=== PATIENT | male | born 1960 | race Caucasian/White ===

== ENCOUNTER 2017-01-31 12:14 | Inpatient (IN) | payer MEDICAID, MEDICARE ==
[~2017-01-31] VITALS: Ht 177.8 cm; Wt 99.8 kg
[~2017-01-31 12:14] MED LIST: DOXY100C2; PHE100C; TAMS0.4C36
[2017-01-31] MEDS ORDERED: SODIUM CHLORIDE 0.9% 1,000 ML IVB ONE (12:56)
[2017-01-31 13:43] LABS: Basophils # (auto) 0.2 uL; Basophils % (auto) 1.8 % (0.0-2.0); Eosinophils # (auto) 0.5 uL; Eosinophils % (auto) 3.6 % (0.0-7.0); Hematocrit 52.6 % (41.0-53.0); Hemoglobin 18.3 g/dL (13.5-17.5); Lymphocytes # (auto) 3.5 uL; Lymphocytes % (auto) 25.8 % (10.0-50.0); Mean Corpuscular Hemoglobin 32.9 pg (28.0-32.0); Mean Corpuscular Hgb Conc. 34.7 g/dL (32.0-36.0); Mean Corpuscular Volume 94.8 fL (80.0-100.0); Mean Platelet Volume 8.3 fL (6.9-10.8); Monocytes # (auto) 1.2 uL; Monocytes % (auto) 8.6 % (0.0-12.0); Neutrophils # (auto) 8.1 uL; Neutrophils % (auto) 60.2 % (37.0-80.0); Nucleated Red Blood Cells % 0.1 %; Platelet Count (auto) 370 10^3/uL (140-450); Red Cell Distribution Width 13.8 % (11.8-14.3); White Blood Cell 13.4 10^3/uL (4.4-10.8)
[2017-01-31 14:20] LABS: Albumin 3.3 g/dL (3.4-5.0); Alkaline Phosphatase 261 U/L (45-117); Anion Gap 8 (5-15); Aspartate Aminotransferase 30 U/L (15-37); Bilirubin, Total 0.5 mg/dL (0.2-1.0); Blood Urea Nitrogen 9 mg/dL (7-18); Carbon Dioxide 27 mmol/L (21-32); Chloride 104 mmol/L (98-107); GFR African American 223 mL/min; GFR Non-African American 184 mL/min; Glucose 94 mg/dL (74-106); Potassium 3.7 mmol/L (3.5-5.1); Sodium 139 mmol/L (136-145); Total Protein 9.2 g/dL (6.4-8.2)
[2017-01-31] MEDS: SODIUM CHLORIDE 0.9% 1,000 ML IV SCH (15:01)
[2017-01-31] MEDS ORDERED: HYDROcodone-ACET 5/325MG TAB PO PRN (15:15)
[2017-01-31] MEDS ORDERED: LACTULOSE 20Gm/30ML SOLN PO PRN (15:15)
[2017-01-31] MEDS ORDERED: TEMAZEPAM 15 MG CAP PO PRN (15:15)
[2017-01-31] MEDS ORDERED: LORazepam 2MG/ML-1ML VIAL IV PRN (15:15)
[2017-01-31] MEDS ORDERED: ACETAMINOPHEN 500 MG TAB PO PRN (15:15)
[2017-01-31] MEDS ORDERED: NITROGLYCERIN 0.4 MG SL TAB SL PRN (15:15)
[2017-01-31] MEDS ORDERED: PROMETHAZINE HCL 25 MG/ML 1ML IV PRN (15:15)
[2017-01-31] MEDS ORDERED: MORPHINE SULF INJ 2 MG/ML SYRINGE 1ML IV PRN (15:15)
[2017-01-31] MEDS ORDERED: LORazepam 0.5 MG TAB PO PRN (15:15)
[2017-01-31 16:40] LABS: INR 1.07 (0.9-1.15); Partial Thromboplastin Time 32.2 sec (22.64-33.71); Prothrombin Time 11.7 sec (9.37-12.3)
[2017-01-31] MEDS: LABETALOL HCL 5 MG/ML 4ML SYRINGE IV PRN (19:07)
[2017-01-31 20:58] LABS: Urine Bilirubin Negative (Negative); Urine Blood 3+ /uL (Negative); Urine Color Red (Yellow); Urine Glucose Normal (Normal); Urine Ketone TRACE (Negative); Urine Nitrite Negative (Negative); Urine RBC 5503 /hpf (0 - 3); Urine Urobilinogen Normal (Negative); Urine pH 8.5 (5.0-8.0)
[2017-01-31] MEDS: PHENYTOIN SODIUM 50 MG/ML 2ML VIAL IV SCH (22:17)
[2017-01-31] MEDS ORDERED: LEVO25TA6 PO (23:44)
[2017-01-31] MEDS ORDERED: PROP225C9 PO (23:44)
[2017-01-31] MEDS ORDERED: LISI-646 PO (23:44)
[2017-01-31] MEDS ORDERED: FOLI1TAB6 PO (23:44)
[2017-01-31] MEDS ORDERED: DULO20CA PO (23:44)
[2017-01-31] MEDS ORDERED: APIX5TAB OR (23:44)
[2017-01-31] MEDS ORDERED: MULTTAB99 PO (23:57)
[2017-01-31] MEDS ORDERED: ACET-1156 PO (23:57)
[2017-01-31] MEDS ORDERED: PHE100C PO ×2 (23:57)
[2017-01-31] MEDS ORDERED: CLO01T PO (23:57)
[2017-02-01] MEDS: SODIUM CHLORIDE 0.9% 1,000 ML IV SCH ×3 (04:21→21:32)
[2017-02-01 05:00] VITALS: BP 142/74
[2017-02-01] MEDS: PHENYTOIN SODIUM 50 MG/ML 2ML VIAL IV SCH ×3 (05:54→21:24)
[2017-02-01 06:39] LABS: Basophils # (auto) 0.2 uL; Basophils % (auto) 0.9 % (0.0-2.0); Eosinophils # (auto) 0.2 uL; Eosinophils % (auto) 1.1 % (0.0-7.0); Hematocrit 48.1 % (41.0-53.0); Hemoglobin 16.4 g/dL (13.5-17.5); Lymphocytes % (auto) 11.2 % (10.0-50.0); Mean Corpuscular Hemoglobin 32.4 pg (28.0-32.0); Mean Corpuscular Hgb Conc. 34.2 g/dL (32.0-36.0); Mean Corpuscular Volume 94.9 fL (80.0-100.0); Mean Platelet Volume 8.7 fL (6.9-10.8); Monocytes # (auto) 1.3 uL; Monocytes % (auto) 7.4 % (0.0-12.0); Neutrophils # (auto) 14.4 uL; Neutrophils % (auto) 79.4 % (37.0-80.0); Platelet Count (auto) 329 10^3/uL (140-450); Red Cell Distribution Width 13.8 % (11.8-14.3); White Blood Cell 18.1 10^3/uL (4.4-10.8)
[2017-02-01 07:09] LABS: Albumin 2.7 g/dL (3.4-5.0); BUN/Creatinine Ratio 18.4; Bilirubin, Total 0.8 mg/dL (0.2-1.0); Calcium 8.2 mg/dL (8.5-10.1); Potassium 3.4 mmol/L (3.5-5.1); Total Protein 7.5 g/dL (6.4-8.2)
[2017-02-01 09:00] VITALS: BP 119/85
[2017-02-01] MEDS: NICOTINE 21MG/24 HR TOPICAL PATCH TD SCH (09:23)
[2017-02-01] MEDS: MORPHINE SULF INJ 2 MG/ML SYRINGE 1ML IV PRN ×2 (09:23→15:26)
[2017-02-01] MEDS: ENOXAPARIN SOD 40 MG/0.4 ML SYRINGE SC SCH (09:23)
[2017-02-01 13:00] VITALS: BP 159/68
[2017-02-01 17:00] VITALS: BP 159/81
[2017-02-01 21:07] VITALS: BP 165/82
[2017-02-02] VITALS (7 sets, daily range): BP systolic 135–191; BP diastolic 77–113
[2017-02-02] MEDS: LABETALOL HCL 5 MG/ML 4ML SYRINGE IV PRN ×5 (04:22→17:41)
[2017-02-02] MEDS: PHENYTOIN SODIUM 50 MG/ML 2ML VIAL IV SCH ×3 (06:26→21:36)
[2017-02-02] MEDS: ENOXAPARIN SOD 40 MG/0.4 ML SYRINGE SC SCH (09:35)
[2017-02-02] MEDS: NICOTINE 21MG/24 HR TOPICAL PATCH TD SCH (09:37)
[2017-02-02] MEDS: MORPHINE SULF INJ 2 MG/ML SYRINGE 1ML IV PRN ×2 (11:45→17:41)
[2017-02-02] MEDS: SODIUM CHLORIDE 0.9% 1,000 ML IV SCH (20:38)
[2017-02-03 05:00] VITALS: BP 153/106
[2017-02-03] MEDS: PHENYTOIN SODIUM 50 MG/ML 2ML VIAL IV SCH ×3 (05:53→22:10)
[2017-02-03] MEDS: LABETALOL HCL 5 MG/ML 4ML SYRINGE IV PRN ×3 (05:54→17:28)
[2017-02-03 09:00] VITALS: BP 163/84
[2017-02-03] MEDS: SODIUM CHLORIDE 0.9% 1,000 ML IV SCH (09:41)
[2017-02-03] MEDS ORDERED: ceFAZolin 1GM/50ML D5W 50 ML IV ONE (09:45)
[2017-02-03] MEDS: ENOXAPARIN SOD 40 MG/0.4 ML SYRINGE SC SCH (10:00)
[2017-02-03] MEDS: NICOTINE 21MG/24 HR TOPICAL PATCH TD SCH (10:00)
[2017-02-03] MEDS: PIPERACILLIN-TAZOB 3.375GM 100 ML IV SCH ×3 (12:46→22:12)
[2017-02-03 13:00] VITALS: BP 166/97
[2017-02-03 17:45] VITALS: BP 154/100
[2017-02-04] MEDS: SODIUM CHLORIDE 0.9% 1,000 ML IV SCH ×2 (01:17→11:21)
[2017-02-04] MEDS: LABETALOL HCL 5 MG/ML 4ML SYRINGE IV PRN ×3 (04:16→14:49)
[2017-02-04] MEDS: MORPHINE SULF INJ 2 MG/ML SYRINGE 1ML IV PRN (04:17)
[2017-02-04] MEDS: PHENYTOIN SODIUM 50 MG/ML 2ML VIAL IV SCH ×3 (06:04→21:36)
[2017-02-04] MEDS: PIPERACILLIN-TAZOB 3.375GM 100 ML IV SCH ×3 (06:04→17:53)
[2017-02-04 06:47] LABS: Basophils # (auto) 0.2 uL; Basophils % (auto) 1.3 % (0.0-2.0); Eosinophils # (auto) 0.6 uL; Hematocrit 47.4 % (41.0-53.0); Hemoglobin 16.2 g/dL (13.5-17.5); Lymphocytes # (auto) 3.1 uL; Lymphocytes % (auto) 20.7 % (10.0-50.0); Mean Corpuscular Hemoglobin 32.4 pg (28.0-32.0); Mean Corpuscular Hgb Conc. 34.1 g/dL (32.0-36.0); Monocytes # (auto) 1.5 uL; Monocytes % (auto) 9.8 % (0.0-12.0); Neutrophils # (auto) 9.5 uL; Neutrophils % (auto) 64.2 % (37.0-80.0); Nucleated Red Blood Cells % 0.1 %; Platelet Count (auto) 313 10^3/uL (140-450); White Blood Cell 14.8 10^3/uL (4.4-10.8)
[2017-02-04 07:08] LABS: BUN/Creatinine Ratio 13.3; Calcium 8.3 mg/dL (8.5-10.1); Potassium 3.2 mmol/L (3.5-5.1)
[2017-02-04 09:00] VITALS: BP 155/96
[2017-02-04] MEDS: ENOXAPARIN SOD 40 MG/0.4 ML SYRINGE SC SCH (11:14)
[2017-02-04] MEDS: NICOTINE 21MG/24 HR TOPICAL PATCH TD SCH (11:15)
[2017-02-04] MEDS: DOXYCYCLINE HYC 100MG/250ML 250 ML IV SCH ×2 (11:21→21:36)
[2017-02-04 13:00] VITALS: BP 150/92
[2017-02-04 17:00] VITALS: BP 158/90
[2017-02-04 22:00] VITALS: BP 156/83
[2017-02-05] MEDS: PIPERACILLIN-TAZOB 3.375GM 100 ML IV SCH ×5 (00:02→21:54)
[2017-02-05] MEDS: MORPHINE SULF INJ 2 MG/ML SYRINGE 1ML IV PRN ×3 (00:14→21:55)
[2017-02-05] MEDS: SODIUM CHLORIDE 0.9% 1,000 ML IV SCH (02:55)
[2017-02-05] MEDS: LABETALOL HCL 5 MG/ML 4ML SYRINGE IV PRN ×2 (04:43→21:55)
[2017-02-05 05:00] VITALS: BP 147/102
[2017-02-05] MEDS: PHENYTOIN SODIUM 50 MG/ML 2ML VIAL IV SCH ×3 (06:41→21:54)
[2017-02-05 06:51] LABS: Basophils # (auto) 0.2 uL; Basophils % (auto) 1.2 % (0.0-2.0); Eosinophils # (auto) 0.6 uL; Eosinophils % (auto) 3.9 % (0.0-7.0); Hematocrit 48.9 % (41.0-53.0); Hemoglobin 16.5 g/dL (13.5-17.5); Lymphocytes # (auto) 3.3 uL; Lymphocytes % (auto) 22.9 % (10.0-50.0); Mean Corpuscular Hgb Conc. 33.8 g/dL (32.0-36.0); Mean Corpuscular Volume 94.9 fL (80.0-100.0); Mean Platelet Volume 9.1 fL (6.9-10.8); Monocytes # (auto) 1.4 uL; Monocytes % (auto) 9.8 % (0.0-12.0); Neutrophils # (auto) 8.9 uL; Neutrophils % (auto) 62.2 % (37.0-80.0); Nucleated Red Blood Cells % 0.1 %; Platelet Count (auto) 316 10^3/uL (140-450); White Blood Cell 14.4 10^3/uL (4.4-10.8)
[2017-02-05 07:09] LABS: BUN/Creatinine Ratio 10.8; Calcium 8.4 mg/dL (8.5-10.1); Potassium 3.1 mmol/L (3.5-5.1)
[2017-02-05] MEDS ORDERED: LIDOCAINE VISCOUS 2% 15ML UD ONE (08:04)
[2017-02-05] MEDS ORDERED: SODIUM CHLORIDE LOCK 10 ML ONE (08:04)
[2017-02-05] MEDS ORDERED: MIDAZOLAM HCL 5 MG/ML-1ML VIAL ONE (08:04)
[2017-02-05] MEDS ORDERED: diphenhdrAMINE HCL 50 MG/1 ML VL ONE (08:04)
[2017-02-05] MEDS ORDERED: fentaNYL CITRATE 100 MCG/2 ML VL ONE (08:05)
[2017-02-05 09:00] VITALS: BP 186/99
[2017-02-05] MEDS: DOXYCYCLINE HYC 100MG/250ML 250 ML IV SCH (09:30)
[2017-02-05] MEDS: ENOXAPARIN SOD 40 MG/0.4 ML SYRINGE SC SCH (10:00)
[2017-02-05] MEDS: NICOTINE 21MG/24 HR TOPICAL PATCH TD SCH (10:00)
[2017-02-05 13:00] VITALS: BP 158/98
[2017-02-05 17:00] VITALS: BP 167/108
[2017-02-05] MEDS: D5W/SOD CHL 0.45%/KCL 40MEQ 1,000 ML IV SCH (17:36)
[2017-02-05 22:00] VITALS: BP 164/78
[2017-02-06 05:00] VITALS: BP 162/81
[2017-02-06] MEDS: PHENYTOIN SODIUM 50 MG/ML 2ML VIAL IV SCH ×3 (05:14→17:25)
[2017-02-06] MEDS: PIPERACILLIN-TAZOB 3.375GM 100 ML IV SCH ×2 (05:14→18:33)
[2017-02-06] MEDS: D5W/SOD CHL 0.45%/KCL 40MEQ 1,000 ML IV SCH (05:14)
[2017-02-06] MEDS: LABETALOL HCL 5 MG/ML 4ML SYRINGE IV PRN ×2 (05:55→23:55)
[2017-02-06] MEDS ORDERED: POTASSIUM CHL 20MEQ/100ML 100 ML IV ONE ×2 (08:54→10:00)
[2017-02-06 09:00] VITALS: BP 144/77
[2017-02-06] MEDS: ENOXAPARIN SOD 40 MG/0.4 ML SYRINGE SC SCH (11:23)
[2017-02-06] MEDS: NICOTINE 21MG/24 HR TOPICAL PATCH TD SCH (11:23)
[2017-02-06 13:00] VITALS: BP 185/97
[2017-02-06] MEDS ORDERED: LIDOCAINE 1% HCL (LOCAL ANESTH.) INJ 20ML MDV ID ONE (14:45)
[2017-02-06 17:00] VITALS: BP 154/96
[2017-02-06] MEDS: MORPHINE SULF INJ 2 MG/ML SYRINGE 1ML IV PRN ×2 (17:25→19:50)
[2017-02-06] MEDS: POTASSIUM CHLORIDE 40 MEQ in D5W/LACTATED RINGERS 1,000 ML IV SCH (19:42)
[2017-02-06] MEDS: SODIUM CHLOR 0.9% PF (SALINE LOCK) 10ML VIAL IV SCH (21:58)
[2017-02-06 23:41] VITALS: BP 165/114
[2017-02-07] MEDS: POTASSIUM CHLORIDE 40 MEQ in D5W/LACTATED RINGERS 1,000 ML IV SCH ×2 (03:18→13:53)
[2017-02-07 05:05] VITALS: BP 153/100
[2017-02-07] MEDS: PHENYTOIN SODIUM 50 MG/ML 2ML VIAL IV SCH ×3 (06:36→22:04)
[2017-02-07 08:00] VITALS: BP 167/84
[2017-02-07] MEDS ORDERED: PIPERACILLIN-TAZOB 3.375GM 100 ML IV SCH ×2 (08:15→19:13)
[2017-02-07] MEDS: PIPERACILLIN-TAZOB 3.375GM 100 ML IV SCH ×3 (09:27→20:39)
[2017-02-07] MEDS: MORPHINE SULF INJ 2 MG/ML SYRINGE 1ML IV PRN ×2 (09:28→20:38)
[2017-02-07] MEDS: LABETALOL HCL 5 MG/ML 4ML SYRINGE IV PRN ×3 (09:30→20:38)
[2017-02-07] MEDS: SODIUM CHLOR 0.9% PF (SALINE LOCK) 10ML VIAL IV SCH ×2 (10:00→22:04)
[2017-02-07 10:57] VITALS: BP 157/75
[2017-02-07] MEDS: ENOXAPARIN SOD 40 MG/0.4 ML SYRINGE SC SCH (14:21)
[2017-02-07 17:19] VITALS: BP 155/93
[2017-02-07] MEDS: NICOTINE 21MG/24 HR TOPICAL PATCH TD SCH (18:39)
[2017-02-07 22:00] VITALS: BP 160/103
[2017-02-07 22:40] VITALS: BP 166/82
[2017-02-08] MEDS: PIPERACILLIN-TAZOB 3.375GM 100 ML IV SCH ×4 (03:44→20:54)
[2017-02-08 05:00] VITALS: BP 150/83
[2017-02-08] MEDS: PHENYTOIN SODIUM 50 MG/ML 2ML VIAL IV SCH ×3 (06:03→22:05)
[2017-02-08 07:30] VITALS: BP 166/80
[2017-02-08 09:00] VITALS: BP 151/72
[2017-02-08] MEDS: NICOTINE 21MG/24 HR TOPICAL PATCH TD SCH (10:44)
[2017-02-08] MEDS: SODIUM CHLOR 0.9% PF (SALINE LOCK) 10ML VIAL IV SCH ×2 (10:44→22:05)
[2017-02-08] MEDS: ENOXAPARIN SOD 40 MG/0.4 ML SYRINGE SC SCH (10:46)
[2017-02-08] MEDS: POTASSIUM CHLORIDE 40 MEQ in D5W/LACTATED RINGERS 1,000 ML IV SCH ×3 (12:19→23:39)
[2017-02-08 13:00] VITALS: BP 146/87
[2017-02-08 14:10] LABS: INR 2.02 (0.9-1.15); Partial Thromboplastin Time 41.3 sec (22.64-33.71); Prothrombin Time 22.2 sec (9.37-12.3)
[2017-02-08 17:00] VITALS: BP 171/110
[2017-02-08] MEDS: LABETALOL HCL 5 MG/ML 4ML SYRINGE IV PRN ×2 (17:47→20:00)
[2017-02-08 19:08] LABS: INR 2.07 (0.9-1.15); Partial Thromboplastin Time 40.7 sec (22.64-33.71); Prothrombin Time 22.7 sec (9.37-12.3)
[2017-02-08] MEDS: MORPHINE SULF INJ 2 MG/ML SYRINGE 1ML IV PRN (19:59)
[2017-02-08 21:36] VITALS: BP 168/83
[2017-02-09] MEDS: PIPERACILLIN-TAZOB 3.375GM 100 ML IV SCH ×4 (03:17→21:14)
[2017-02-09 05:34] VITALS: BP 165/81
[2017-02-09] MEDS: PHENYTOIN SODIUM 50 MG/ML 2ML VIAL IV SCH ×3 (05:38→22:09)
[2017-02-09] MEDS: POTASSIUM CHLORIDE 40 MEQ in D5W/LACTATED RINGERS 1,000 ML IV SCH ×2 (08:54→21:14)
[2017-02-09 09:06] VITALS: BP 163/111
[2017-02-09] MEDS: SODIUM CHLOR 0.9% PF (SALINE LOCK) 10ML VIAL IV SCH ×2 (10:00→22:09)
[2017-02-09] MEDS: ENOXAPARIN SOD 40 MG/0.4 ML SYRINGE SC SCH (10:47)
[2017-02-09] MEDS: NICOTINE 21MG/24 HR TOPICAL PATCH TD SCH (10:48)
[2017-02-09 13:26] VITALS: BP 175/110
[2017-02-09] MEDS ORDERED: PHYTONADIONE (VIT K)10 MG/ML 1ML VIAL SUBCUT ONE (13:30)
[2017-02-09 14:48] LABS: INR 2.36 (0.9-1.15); Partial Thromboplastin Time 43.6 sec (22.64-33.71)
[2017-02-09 17:17] VITALS: BP 150/114
[2017-02-09 20:46] VITALS: BP 157/115
[2017-02-10] MEDS: PIPERACILLIN-TAZOB 3.375GM 100 ML IV SCH ×4 (02:40→21:30)
[2017-02-10 03:59] VITALS: BP 154/106
[2017-02-10] MEDS: PHENYTOIN SODIUM 50 MG/ML 2ML VIAL IV SCH ×3 (06:04→21:49)
[2017-02-10] MEDS: POTASSIUM CHLORIDE 40 MEQ in D5W/LACTATED RINGERS 1,000 ML IV SCH ×2 (07:00→17:17)
[2017-02-10] MEDS: NICOTINE 21MG/24 HR TOPICAL PATCH TD SCH (08:41)
[2017-02-10 09:00] VITALS: BP 163/93
[2017-02-10] MEDS: MORPHINE SULF INJ 2 MG/ML SYRINGE 1ML IV PRN (09:35)
[2017-02-10] MEDS: SODIUM CHLOR 0.9% PF (SALINE LOCK) 10ML VIAL IV SCH ×2 (10:00→21:49)
[2017-02-10] MEDS ORDERED: POTASSIUM CHLORIDE 20 MEQ, LIDOCAINE 1% (LOCAL ANESTH.) 2 ML in SODIUM CHL 0.9% 100 ML IV ONE (12:00)
[2017-02-10] MEDS: ENOXAPARIN SOD 40 MG/0.4 ML SYRINGE SC SCH (12:02)
[2017-02-10 13:25] VITALS: BP 150/84
[2017-02-10 16:58] VITALS: BP 162/119
[2017-02-10 21:22] VITALS: BP 164/101
[2017-02-10] MEDS: LABETALOL HCL 5 MG/ML 4ML SYRINGE IV PRN (21:50)
[2017-02-10 23:41] VITALS: BP 154/98
[2017-02-11] MEDS: PIPERACILLIN-TAZOB 3.375GM 100 ML IV SCH ×4 (03:00→20:59)
[2017-02-11] MEDS: POTASSIUM CHLORIDE 40 MEQ in D5W/LACTATED RINGERS 1,000 ML IV SCH ×2 (03:15→15:30)
[2017-02-11 04:59] VITALS: BP 161/119
[2017-02-11] MEDS: LABETALOL HCL 5 MG/ML 4ML SYRINGE IV PRN ×2 (05:08→21:39)
[2017-02-11] MEDS: PHENYTOIN SODIUM 50 MG/ML 2ML VIAL IV SCH ×3 (05:46→22:52)
[2017-02-11 06:26] LABS: INR 1.11 (0.9-1.15); Prothrombin Time 12.1 sec (9.37-12.3)
[2017-02-11 06:42] LABS: Albumin 2.4 g/dL (3.4-5.0); BUN/Creatinine Ratio 4.5; Bilirubin, Total 0.6 mg/dL (0.2-1.0); Calcium 8.5 mg/dL (8.5-10.1); Potassium 3.8 mmol/L (3.5-5.1); Total Protein 7.3 g/dL (6.4-8.2)
[2017-02-11 06:46] LABS: Basophils # (auto) 0.2 uL; Basophils % (auto) 1.1 % (0.0-2.0); Eosinophils # (auto) 0.9 uL; Eosinophils % (auto) 6.4 % (0.0-7.0); Hematocrit 48.9 % (41.0-53.0); Hemoglobin 16.3 g/dL (13.5-17.5); Lymphocytes # (auto) 3.4 uL; Lymphocytes % (auto) 23.4 % (10.0-50.0); Mean Corpuscular Hemoglobin 31.8 pg (28.0-32.0); Mean Corpuscular Hgb Conc. 33.4 g/dL (32.0-36.0); Mean Corpuscular Volume 95.3 fL (80.0-100.0); Mean Platelet Volume 9.8 fL (6.9-10.8); Monocytes # (auto) 1.5 uL; Neutrophils # (auto) 8.7 uL; Neutrophils % (auto) 59.1 % (37.0-80.0); Platelet Count (auto) 355 10^3/uL (140-450); Red Cell Distribution Width 14.3 % (11.8-14.3); White Blood Cell 14.7 10^3/uL (4.4-10.8)
[2017-02-11 09:01] VITALS: BP 132/97
[2017-02-11] MEDS: SODIUM CHLOR 0.9% PF (SALINE LOCK) 10ML VIAL IV SCH ×2 (10:00→22:52)
[2017-02-11] MEDS: NICOTINE 21MG/24 HR TOPICAL PATCH TD SCH (10:17)
[2017-02-11] MEDS: ENOXAPARIN SOD 40 MG/0.4 ML SYRINGE SC SCH (10:17)
[2017-02-11 12:53] VITALS: BP 199/100
[2017-02-11 17:17] VITALS: BP 163/105
[2017-02-11 20:00] VITALS: BP 176/89
[2017-02-11 21:33] VITALS: BP 176/89
[2017-02-12] MEDS: PIPERACILLIN-TAZOB 3.375GM 100 ML IV SCH ×4 (02:37→21:26)
[2017-02-12] MEDS: POTASSIUM CHLORIDE 40 MEQ in D5W/LACTATED RINGERS 1,000 ML IV SCH ×3 (03:01→18:39)
[2017-02-12 04:48] VITALS: BP 156/81
[2017-02-12] MEDS: PHENYTOIN SODIUM 50 MG/ML 2ML VIAL IV SCH ×3 (05:57→21:26)
[2017-02-12 06:45] LABS: Basophils # (auto) 0.4 uL; Basophils % (auto) 3.2 % (0.0-2.0); Eosinophils # (auto) 1.1 uL; Hemoglobin 17.1 g/dL (13.5-17.5); Lymphocytes # (auto) 3.6 uL; Lymphocytes % (auto) 30.4 % (10.0-50.0); Mean Corpuscular Hemoglobin 32.5 pg (28.0-32.0); Mean Corpuscular Hgb Conc. 34.1 g/dL (32.0-36.0); Mean Corpuscular Volume 95.2 fL (80.0-100.0); Mean Platelet Volume 9.2 fL (6.9-10.8); Monocytes # (auto) 1.4 uL; Monocytes % (auto) 11.7 % (0.0-12.0); Neutrophils # (auto) 5.4 uL; Neutrophils % (auto) 45.7 % (37.0-80.0); Nucleated Red Blood Cells % 0.1 %; Platelet Count (auto) 342 10^3/uL (140-450); Red Cell Distribution Width 14.4 % (11.8-14.3); White Blood Cell 11.9 10^3/uL (4.4-10.8)
[2017-02-12 06:47] LABS: INR 1.08 (0.9-1.15); Prothrombin Time 11.8 sec (9.37-12.3)
[2017-02-12 07:01] LABS: Albumin 2.4 g/dL (3.4-5.0); BUN/Creatinine Ratio 5.1; Bilirubin, Total 0.7 mg/dL (0.2-1.0); Calcium 8.8 mg/dL (8.5-10.1); Potassium 3.7 mmol/L (3.5-5.1); Total Protein 7.3 g/dL (6.4-8.2)
[2017-02-12 09:00] VITALS: BP 158/88
[2017-02-12] MEDS: SODIUM CHLOR 0.9% PF (SALINE LOCK) 10ML VIAL IV SCH ×2 (11:15→21:26)
[2017-02-12] MEDS: NICOTINE 21MG/24 HR TOPICAL PATCH TD SCH (11:16)
[2017-02-12] MEDS: ENOXAPARIN SOD 40 MG/0.4 ML SYRINGE SC SCH (11:16)
[2017-02-12 13:00] VITALS: BP 118/71
[2017-02-12] MEDS: LABETALOL HCL 5 MG/ML 4ML SYRINGE IV PRN (22:43)
[2017-02-13] MEDS: PIPERACILLIN-TAZOB 3.375GM 100 ML IV SCH ×4 (03:00→20:23)
[2017-02-13] MEDS: POTASSIUM CHLORIDE 40 MEQ in D5W/LACTATED RINGERS 1,000 ML IV SCH ×2 (04:42→15:45)
[2017-02-13 05:30] VITALS: BP 166/98
[2017-02-13] MEDS: PHENYTOIN SODIUM 50 MG/ML 2ML VIAL IV SCH ×3 (06:00→20:23)
[2017-02-13] MEDS: ENOXAPARIN SOD 40 MG/0.4 ML SYRINGE SC SCH (10:00)
[2017-02-13] MEDS: NICOTINE 21MG/24 HR TOPICAL PATCH TD SCH (10:00)
[2017-02-13 13:00] VITALS: BP 154/105
[2017-02-13] MEDS ORDERED: LIDOCAINE 1% HCL (LOCAL ANESTH.) INJ 20ML MDV ID ONE (15:00)
[2017-02-13] MEDS: SODIUM CHLOR 0.9% PF (SALINE LOCK) 10ML VIAL IV SCH ×3 (15:45→20:24)
[2017-02-13 17:00] VITALS: BP 153/101
[2017-02-13 23:45] VITALS: BP 161/104
[2017-02-14] MEDS: POTASSIUM CHLORIDE 40 MEQ in D5W/LACTATED RINGERS 1,000 ML IV SCH ×3 (00:11→20:05)
[2017-02-14] MEDS: PIPERACILLIN-TAZOB 3.375GM 100 ML IV SCH ×4 (03:17→20:17)
[2017-02-14 05:03] VITALS: BP 152/102
[2017-02-14] MEDS: PHENYTOIN SODIUM 50 MG/ML 2ML VIAL IV SCH ×3 (05:23→22:05)
[2017-02-14] MEDS: SODIUM CHLOR 0.9% PF (SALINE LOCK) 10ML VIAL IV SCH ×4 (07:41→20:05)
[2017-02-14] MEDS: NICOTINE 21MG/24 HR TOPICAL PATCH TD SCH (08:46)
[2017-02-14] MEDS: ENOXAPARIN SOD 40 MG/0.4 ML SYRINGE SC SCH (08:46)
[2017-02-14 09:00] VITALS: BP 174/86
[2017-02-14 13:00] VITALS: BP 165/86
[2017-02-14 17:00] VITALS: BP 161/97
[2017-02-14 21:27] VITALS: BP 138/90
[2017-02-15] MEDS: PIPERACILLIN-TAZOB 3.375GM 100 ML IV SCH ×2 (03:25→09:18)
[2017-02-15 04:56] VITALS: BP 150/80
[2017-02-15] MEDS: PHENYTOIN SODIUM 50 MG/ML 2ML VIAL IV SCH ×3 (05:48→21:53)
[2017-02-15] MEDS: POTASSIUM CHLORIDE 40 MEQ in D5W/LACTATED RINGERS 1,000 ML IV SCH ×2 (07:42→18:16)
[2017-02-15] MEDS: ENOXAPARIN SOD 40 MG/0.4 ML SYRINGE SC SCH (09:18)
[2017-02-15] MEDS: NICOTINE 21MG/24 HR TOPICAL PATCH TD SCH (09:18)
[2017-02-15] MEDS: SODIUM CHLOR 0.9% PF (SALINE LOCK) 10ML VIAL IV SCH ×4 (09:19→21:54)
[2017-02-15] MEDS: LABETALOL HCL 5 MG/ML 4ML SYRINGE IV PRN ×2 (09:31→17:42)
[2017-02-15 09:35] VITALS: BP 167/95
[2017-02-15] MEDS ORDERED: MUPIROCIN 2% OINT 22GM TOP ONE (11:00)
[2017-02-15 12:00] LABS: INR 1.08 (0.9-1.15); Partial Thromboplastin Time 33.2 sec (22.64-33.71); Prothrombin Time 11.8 sec (9.37-12.3)
[2017-02-15 12:01] LABS: Basophils # (auto) 0.2 uL; Basophils % (auto) 2.1 % (0.0-2.0); Eosinophils # (auto) 1.1 uL; Eosinophils % (auto) 9.9 % (0.0-7.0); Hematocrit 47.2 % (41.0-53.0); Hemoglobin 15.9 g/dL (13.5-17.5); Lymphocytes # (auto) 3.6 uL; Lymphocytes % (auto) 31.2 % (10.0-50.0); Mean Corpuscular Hemoglobin 32.3 pg (28.0-32.0); Mean Corpuscular Hgb Conc. 33.7 g/dL (32.0-36.0); Mean Corpuscular Volume 95.8 fL (80.0-100.0); Mean Platelet Volume 8.8 fL (6.9-10.8); Monocytes # (auto) 1.3 uL; Monocytes % (auto) 11.5 % (0.0-12.0); Neutrophils # (auto) 5.2 uL; Neutrophils % (auto) 45.3 % (37.0-80.0); Nucleated Red Blood Cells % 0.1 %; Platelet Count (auto) 374 10^3/uL (140-450); Red Cell Distribution Width 14.1 % (11.8-14.3); White Blood Cell 11.5 10^3/uL (4.4-10.8)
[2017-02-15 12:20] LABS: Albumin 2.5 g/dL (3.4-5.0); BUN/Creatinine Ratio 5.1; Bilirubin, Total 0.6 mg/dL (0.2-1.0); Calcium 8.5 mg/dL (8.5-10.1); Potassium 3.4 mmol/L (3.5-5.1)
[2017-02-15 12:54] VITALS: BP 154/82
[2017-02-15 17:28] VITALS: BP 171/111
[2017-02-15] MEDS: MUPIROCIN 2% OINT 22GM EACHNOSTRI SCH (21:53)
[2017-02-15 22:00] VITALS: BP 141/87
[2017-02-16] MEDS: POTASSIUM CHLORIDE 40 MEQ in D5W/LACTATED RINGERS 1,000 ML IV SCH ×2 (02:19→14:18)
[2017-02-16 05:30] VITALS: BP 175/96
[2017-02-16] MEDS: LABETALOL HCL 5 MG/ML 4ML SYRINGE IV PRN ×2 (05:37→11:29)
[2017-02-16] MEDS: PHENYTOIN SODIUM 50 MG/ML 2ML VIAL IV SCH ×2 (05:53→14:00)
[2017-02-16 09:00] VITALS: BP 185/92
[2017-02-16] MEDS: SODIUM CHLOR 0.9% PF (SALINE LOCK) 10ML VIAL IV SCH ×2 (10:00)
[2017-02-16] MEDS: MUPIROCIN 2% OINT 22GM EACHNOSTRI SCH (10:00)
[2017-02-16] MEDS: ENOXAPARIN SOD 40 MG/0.4 ML SYRINGE SC SCH (11:21)
[2017-02-16] MEDS: NICOTINE 21MG/24 HR TOPICAL PATCH TD SCH (11:28)
[2017-02-16 12:40] VITALS: BP 139/75
[2017-02-16 17:10] VITALS: BP 161/92
== END 2017-02-16 17:37 | DRG 720 ==
LOC: ER 12:14 → EDBD 12:14 → TELE 12:15 → TELE-E-ADS 17:20 → TELE-EAST 18:28
PROVIDERS: ADMIT Internal Medicine; ATTEND Internal Medicine Pulmonary Disease
PROC: 0DJ08ZZ Inspection of Upper Intestinal Tract, Via Natural or Artificial Opening Endoscopic (ICD-10-PCS; principal; 2017-02-05 10:30)
PROC: 05H733Z Insertion of Infusion Device into Right Axillary Vein, Percutaneous Approach (ICD-10-PCS; 2017-02-06)
PROC: 02H633Z Insertion of Infusion Device into Right Atrium, Percutaneous Approach (ICD-10-PCS; 2017-02-13)
DX: A41.9 Sepsis, unspecified organism (principal); E44.0 Moderate protein-calorie malnutrition; R13.10 Dysphagia, unspecified; S06.890A Other specified intracranial injury without loss of consciousness, initial encounter; F03.90 Unspecified dementia, unspecified severity, without behavioral disturbance, psychotic disturbance, mood disturbance, and anxiety; G40.909 Epilepsy, unspecified, not intractable, without status epilepticus; I10 Essential (primary) hypertension; E87.6 Hypokalemia; F09 Unspecified mental disorder due to known physiological condition; F17.200 Nicotine dependence, unspecified, uncomplicated; M19.90 Unspecified osteoarthritis, unspecified site; N39.0 Urinary tract infection, site not specified; Z66 Do not resuscitate; Z51.5 Encounter for palliative care; K59.00 Constipation, unspecified; E86.0 Dehydration; T83.098A Other mechanical complication of other urinary catheter, initial encounter; Y82.8 Other medical devices associated with adverse incidents; Y84.6 Urinary catheterization as the cause of abnormal reaction of the patient, or of later complication, without mention of misadventure at the time of the procedure; X58.XXXA Exposure to other specified factors, initial encounter; F41.9 Anxiety disorder, unspecified; G47.00 Insomnia, unspecified; Z68.31 Body mass index [BMI] 31.0-31.9, adult; Z86.73 Personal history of transient ischemic attack (TIA), and cerebral infarction without residual deficits; Z22.322 Carrier or suspected carrier of Methicillin resistant Staphylococcus aureus; Z71.3 Dietary counseling and surveillance; Z93.3 Colostomy status; Y92.89 Other specified places as the place of occurrence of the external cause; Y93.89 Activity, other specified; Y99.8 Other external cause status
CPT/HCPCS: 36415; 36569; 43235; 51702; 70450; 71010; 72192; 73060; 80048; 80053; 80185; 80307; 81001; 83735; 84132; 84484; 85025; 85610; 85652; 85730; 87040; 87081; 87086; 87088; 87186; 92610; 93005; 93306; 95819; 96361; 96365; 96372; 96375; 97163; 97530; J0690; J2001; J2250; J2543; J3430; J3480; J3490

== ENCOUNTER 2018-12-23 14:05 | Inpatient (IN) | payer MEDICAID ==
[~2018-12-23] VITALS: Ht 177.8 cm; Wt 202.5 kg
[~2018-12-23 14:05] MED LIST changes: +ACET-1156 PO; +CLO01T PO; -DOXY100C2; +MULTTAB99 PO; -PHE100C; +PHE100C PO; -TAMS0.4C36
[2018-12-23] MEDS ORDERED: SODIUM CHLORIDE 0.9% 500 ML IVB ONE (14:16)
[2018-12-23 15:30] LABS: Basophils # (auto) 0.1 uL; Basophils % (auto) 0.7 % (0.0-2.0); Eosinophils # (auto) 0.6 uL; Eosinophils % (auto) 4.1 % (0.0-7.0); Hematocrit 49.4 % (41.0-53.0); Hemoglobin 16.1 g/dL (13.5-17.5); Lymphocytes # (auto) 3.7 uL; Lymphocytes % (auto) 25.7 % (10.0-50.0); Mean Corpuscular Hemoglobin 31.7 pg (28.0-32.0); Mean Corpuscular Hgb Conc. 32.6 g/dL (32.0-36.0); Mean Corpuscular Volume 97.2 fL (80.0-100.0); Monocytes # (auto) 1.6 uL; Monocytes % (auto) 11.2 % (0.0-12.0); Neutrophils # (auto) 8.3 uL; Neutrophils % (auto) 58.3 % (37.0-80.0); Platelet Count (auto) 361 10^3/uL (140-450); Red Blood Cells 5.08 10^6/uL (4.5-5.90); Red Cell Distribution Width 15.2 % (11.8-14.3); White Blood Cell 14.3 10^3/uL (4.4-10.8)
[2018-12-23 16:04] LABS: Albumin 2.4 g/dL (3.4-5.0); BUN/Creatinine Ratio 29.8; Calcium 8.9 mg/dL (8.5-10.1); Potassium 3.4 mmol/L (3.5-5.1)
[2018-12-23 16:06] LABS: Bilirubin, Total 0.4 mg/dL (0.2-1.0); Total Protein 7.7 g/dL (6.4-8.2)
[2018-12-23] MEDS ORDERED: SODIUM CHLORIDE 0.9% 1,000 ML IV SCH (16:26)
[2018-12-23] MEDS ORDERED: ACETAMINOPHEN 500 MG TAB PO PRN (16:30)
[2018-12-23] MEDS ORDERED: MORPHINE SULF INJ 2 MG/ML SYRINGE 1ML IV PRN (16:30)
[2018-12-23] MEDS ORDERED: HYDROcodone-ACET 5/325MG TAB PO PRN (16:30)
[2018-12-23] MEDS ORDERED: ONDANSETRON HCL 4 MG/2 ML VIAL IV PRN (16:30)
[2018-12-23] MEDS ORDERED: SODIUM CHLORIDE 0.9% 1,000 ML IV ONE (16:45)
[2018-12-23] MEDS: SOD CHL 0.45% WITH 20MEQ KCL 1,000 ML IV SCH (16:45)
[2018-12-23] MEDS ORDERED: PHENYTOIN SODIUM 100 MG CAP PO SCH (17:00)
[2018-12-23 17:25] LABS: Urine Bacteria MOD /hpf (None Seen); Urine Blood 1+ /uL (Negative); Urine Mucus FEW (None Seen); Urine Specific Gravity 1.017 (1.001-1.035); Urine WBC 283 /hpf (0 - 3)
[2018-12-23] MEDS: TAMSULOSIN HYDROCHLORIDE 0.4 MG CAP PO SCH (18:00)
[2018-12-23 19:57] VITALS: BP 92/65
--- NOTE | 2018-12-23 19:57 | NUR ---
MS admit from ER EVELYN FANG admitted to tele/MS. Patient oriented to WAN MONTREO, primary RN, unit, room, bed, and unit policies regarding patient care and visiting hours. Patient weighed by bed scale and encouraged to call as needed. Patient is non verbal but is able to nod his head for yes or no answers. At this time patient denies pain. Bed is locked in lowest position, side rails x 2 are up, call light is within reach, and bed alarm is on.
--- NOTE | 2018-12-23 20:30 | NUR ---
PICTURES TAKEN FOR REFERENCE Patient noted to have open erythremic scab to left buttock. Scab cleaned with clean soap and water, patted dry, and covered with an Optifoam. Picture was taken for reference.
[2018-12-23] MEDS: DOCUSATE SOD 100 MG CAP PO SCH (21:04)
--- NOTE | 2018-12-23 21:14 | NUR ---
UNABLE TO RECONCILE HOME MEDICATIONS Found sisters phone number (Gabby Robles) in medical record. Attempted to call Gabby at [phone] twice, but the line was busy. Unable to reconcile home medications at this time.
[2018-12-23 22:57] VITALS: BP 98/50
[2018-12-24 01:21] VITALS: BP 106/70
[2018-12-24] MEDS: SOD CHL 0.45% WITH 20MEQ KCL 1,000 ML IV SCH ×2 (02:40→19:25)
[2018-12-24 05:00] VITALS: BP 130/62
--- NOTE | 2018-12-24 07:20 | NUR ---
Open Shift Note Received report on patient, asleep in bed, awoken to touch and calling of patient's name. Patient able to answer yes/no questions only. Patient also able to place a "thumbs up". Patient oriented to person, place, time and situation. No signs of distress are shown at this time, patient continues to place fingers up to mouth as if to attempt smoking. Bed in lowest locked position, side rails up x2 and call light within reach. Will continue to monitor.
[2018-12-24 09:00] VITALS: BP 112/62
[2018-12-24] MEDS: cefTRIAXone 1GM/50ML D5W 50 ML IV SCH (09:15)
[2018-12-24] MEDS ORDERED: ENOXAPARIN SOD 40 MG/0.4 ML SYRINGE SC SCH (10:00)
[2018-12-24] MEDS ORDERED: FAMOTIDINE 20 MG TAB PO SCH (10:00)
[2018-12-24] MEDS: DOCUSATE SOD 100 MG CAP PO SCH (10:00)
[2018-12-24 10:12] LABS: Basophils # (auto) 0.2 uL; Basophils % (auto) 1.2 % (0.0-2.0); Eosinophils # (auto) 0.7 uL; Eosinophils % (auto) 5.6 % (0.0-7.0); Hematocrit 47.1 % (41.0-53.0); Hemoglobin 15.6 g/dL (13.5-17.5); Lymphocytes # (auto) 4.4 uL; Mean Corpuscular Hemoglobin 32.4 pg (28.0-32.0); Mean Corpuscular Hgb Conc. 33.1 g/dL (32.0-36.0); Mean Corpuscular Volume 97.9 fL (80.0-100.0); Monocytes # (auto) 1.3 uL; Monocytes % (auto) 10.1 % (0.0-12.0); Neutrophils # (auto) 6.3 uL; Neutrophils % (auto) 49.1 % (37.0-80.0); Nucleated Red Blood Cells % 0.2 %; Platelet Count (auto) 317 10^3/uL (140-450); Red Blood Cells 4.81 10^6/uL (4.5-5.90); Red Cell Distribution Width 15.4 % (11.8-14.3); White Blood Cell 12.8 10^3/uL (4.4-10.8)
[2018-12-24 10:37] LABS: BUN/Creatinine Ratio 29.9; Calcium 8.5 mg/dL (8.5-10.1); Potassium 3.5 mmol/L (3.5-5.1)
--- NOTE | 2018-12-24 12:00 | NUR ---
WOUND CARE NOTE: Wound care consult received from nursing. Patient is a 58yo male admitted for sepsis. Patient with a history of TBI, seizure disorder and hypertension. Patient is alert, but primarily non verbal. Patient is able to communicate with gestures and occasionally respond with yes or no. Patient is able to state no when asked if in pain. Patient seen with assistance of ERYN Mera. Per chart, patient was a resident of a SNF prior to admission. Last Vladislav score is 12. Patient turned with max assistance and sacrum visualized. OPTIFOAM GENTLE sacral dressing C/D/I. Small wound noted to left buttock measure 1.5cmx1.5xcm and is consistent with stage 2 pressure injury exacerbated by friction/shear. No other open wounds noted. Patient positioned on left side. RECOMMENDATIONS: Dietary consult; Turn q2hrs; Specialty Mattress; Nursing to cleanse sacral wound with wound cleanser and pat dry, apply ZGUARD and cover with OPTIFOAM GENTLE sacral dressing, change every other day and PRN soiling; wound care team to follow. Addendum: 12/24/18 at 1341 by KARYN BALLARD RN Amended: Links added.
[2018-12-24 13:00] VITALS: BP 123/71
[2018-12-24] MEDS: PANTOPRAZOLE 40 MG TAB PO SCH (15:30)
[2018-12-24 17:00] VITALS: BP 131/68
[2018-12-24] MEDS: TAMSULOSIN HYDROCHLORIDE 0.4 MG CAP PO SCH (18:00)
--- NOTE | 2018-12-24 19:14 | NUR ---
End of Shift Endorsed care to NOC nurse. No signs of distress at this time.
--- NOTE | 2018-12-24 19:30 | NUR ---
Opening Shift Note Assumed care of patient, awake and alert to self. Patient is nonverbal but is able to nod his head to yes or no questions. At this time patient denies pain. No S/S of distress/SOB noted. Instructed on plan of care and to call for assistance as needed, reinforcement needed. Bed is locked in lowest position, side rails x 3 are up, call light is within reach, and bed alarm is on.
--- NOTE | 2018-12-24 19:37 | NUR ---
SWALLOW EVALUATED. PATIENT HAS OWN TEETH UPPER AND LOWER. PATIENT IS NONVERBAL BUT COMMUNICATED THUMBS UP FOR PERMISSION TO EVALUATE. PATIENT TOLERATED PUREE DIET TEXTURE WITH CUES TO PUSH BOLUS BACK WITH TONGUE. SOME COUGHING ON THIN LIQUIDS. RECOMMEND NECTAR THICKENED LIQUIDS FOR SAFETY. NURSING NOTIFIED.
[2018-12-24] MEDS: DOCUSATE ORAL LIQUID 100 MG/10 ML UD PO SCH (21:53)
[2018-12-24 22:23] VITALS: BP 125/81
[2018-12-25] VITALS (7 sets, daily range): BP systolic 119–145; BP diastolic 82–103
--- NOTE | 2018-12-25 03:30 | NUR ---
IV insertion IV access obtained, via clean sterile technique by inserting 22 gauge catheter at right forearm after 2 attempts. IV secured properly. No trauma to site. Patient tolerated well.
--- NOTE | 2018-12-25 04:24 | NUR ---
PATIENT PULLED OUT IV IV catheter laying on the bed. IV catheter intact.
[2018-12-25] MEDS: SOD CHL 0.45% WITH 20MEQ KCL 1,000 ML IV SCH ×3 (06:00→18:22)
--- NOTE | 2018-12-25 06:00 | NUR ---
IV insertion IV access obtained, via clean sterile technique by inserting 22 gauge catheter at left forearm after 1 attempt. IV secured properly. No trauma to site. Patient tolerated well.
[2018-12-25 06:17] LABS: Basophils # (auto) 0.1 uL; Basophils % (auto) 0.7 % (0.0-2.0); Eosinophils # (auto) 0.6 uL; Eosinophils % (auto) 5.5 % (0.0-7.0); Hematocrit 52.4 % (41.0-53.0); Hemoglobin 16.6 g/dL (13.5-17.5); Lymphocytes # (auto) 3.6 uL; Lymphocytes % (auto) 30.6 % (10.0-50.0); Mean Corpuscular Hemoglobin 32.5 pg (28.0-32.0); Mean Corpuscular Hgb Conc. 31.7 g/dL (32.0-36.0); Mean Corpuscular Volume 102.4 fL (80.0-100.0); Monocytes # (auto) 1.3 uL; Neutrophils # (auto) 6.1 uL; Neutrophils % (auto) 52.2 % (37.0-80.0); Nucleated Red Blood Cells % 0.1 %; Platelet Count (auto) 300 10^3/uL (140-450); Red Blood Cells 5.12 10^6/uL (4.5-5.90); Red Cell Distribution Width 16.5 % (11.8-14.3); White Blood Cell 11.7 10^3/uL (4.4-10.8)
[2018-12-25 06:29] LABS: Anion Gap 9 (5-15); BUN/Creatinine Ratio 23.6; Blood Urea Nitrogen 17 mg/dL (7-18); Calcium 8.2 mg/dL (8.5-10.1); Carbon Dioxide 20 mmol/L (21-32); Chloride 123 mmol/L (98-107); GFR African American 145 mL/min; GFR Non-African American 120 mL/min; Glucose 69 mg/dL (74-106); Potassium 4.3 mmol/L (3.5-5.1); Sodium 152 mmol/L (136-145)
--- NOTE | 2018-12-25 06:57 | NUR ---
WOUND CARE Patient noted to have pressure ulcer to sacrum. Wound was cleansed with wound cleanser, patted dry, zgaurd and an optifoam was applied.
--- NOTE | 2018-12-25 07:05 | NUR ---
OPENING SHIFT NOTE ASSUMED CARE OF PATIENT FROM ADZING AND BORING MACHINE OPERATOR RN WAN. PATIENT IS AWAKE AND ALERT X1 (NAME). REORIENTED PATIENT TO TIME, PLACE AND SITUATION. PATIENT'S SPEECH IS UNCLEAR AND SLURRED. PATIENT IS ABLE TO COMMUNICATE THROUGH NONVERBAL GESTURES. INSTRUCTED PATIENT ON POC, PATIENT NODDED FOR UNDERSTANDING. BED IS IN LOWEST POSITION WITH SIDE RAILS PADDED AND RAISED X2, BED WHEELS LOCKED, BED ALARM ON, PATIENT ON SPECIALTY MATTRESS, SAUNDERS IS HANGING BELOW BLADDER AND IS DRAINING YELLOW URINE, AND CALL LIGHT IS WITHIN REACH. WILL CONTINUE TO MONITOR.
[2018-12-25] MEDS: PANTOPRAZOLE 40 MG TAB PO SCH (09:06)
[2018-12-25] MEDS: cefTRIAXone 1GM/50ML D5W 50 ML IV SCH (09:06)
[2018-12-25] MEDS: DOCUSATE ORAL LIQUID 100 MG/10 ML UD PO SCH ×2 (09:06→21:24)
--- NOTE | 2018-12-25 12:53 | NUR ---
Nutrition consult/assessment Notes please see attached link for complete assessment Est. Needs based on BW (81 kg): 5668-6625 kcal (23-25 kcal/kgBW), 81-97 gms pro (1.0-1.2 gms/kgBW r/t wounds). Will continue to monitor pertinent labs and reassess nutrient need prn Addendum: 12/25/18 at [address] Amended: Links added.
--- NOTE | 2018-12-25 14:20 | NUR ---
MD SALMERON AT BEDSIDE UPDATED MD ON PATIENT'S STATUS INCLUDING SODIUM LEVELS AND PHENYTOIN LEVEL. MD IS AWARE AND WILL PUT IN DISCHARGE ORDERS FOR PATIENT TO SNF. WILL FOLLOW THROUGH WITH ORDERS. PAGED CEMENTER HELPER, AWAITING CALL BACK.
--- NOTE | 2018-12-25 16:00 | NUR ---
PAGED CRIMINOLOGY TEACHER REGARDING TRANSFER. AWAITING CALL BACK
--- NOTE | 2018-12-25 17:00 | NUR ---
GROWTH MEDIA MIXER MUSHROOM SILVIANO CALLED BACK AND WAS UNAWARE OF SOCIAL SERVICE CONSULT. PATIENT WILL BE GOING BACK TO [facility] ROOM 505 BED 2. PHONE NUMBER FOR REPORT IS .
--- NOTE | 2018-12-25 18:00 | NUR ---
CALLED DR. SALMERON REGARDING SAUNDERS AND LAST BM. PER MD KWADWO SAUNDERS. WILL FOLLOW THROUGH WITH ORDERS.
--- NOTE | 2018-12-25 18:01 | NUR ---
PER SILVIANO [facility] IS CLOSED AND SHE IS UNABLE TO SET UP TRANSPORTATION. PAGED MD SALMERON.
--- NOTE | 2018-12-25 18:02 | NUR ---
Per SS consult, patient received orders to return to SNF. Referral faxed to [facility], placed a follow up call, spoke with Sagar, who advised she was the nurse attending the side where this patient's room is assigned, and that he was okay to return to room 505 bed 2. This patient is a member of [facility] and the transportation component to [facility] is closed at this time and they do not have an after hours line. Advised nurse Minor ([facility]) of the discharge plan, and that there is no available transportation. Will follow up on 12.26.18 for transportation if the on-call CM is not able to arrange transportation this evening. Addendum: 12/25/18 at 1809 by SILVIANO HALL Amended: Links added.
[2018-12-25] MEDS: TAMSULOSIN HYDROCHLORIDE 0.4 MG CAP PO SCH (18:22)
--- NOTE | 2018-12-25 18:27 | NUR ---
Augustin catheter dc'd Order to discontinue augustin catheter. Augustin dc'd with clean technique following deflation of balloon. Patient tolerated well with no complaints of pain. 220 ml of orange urine drained.
--- NOTE | 2018-12-25 19:28 | NUR ---
CLOSING SHIFT NOTE ENDORSED CARE TO FIELD FOREMAN RN ROBERT. INFORMED HER OF TRANSFER. SPOKE WITH LADLE PATCHER PROVIDER DR. MANSFIELD AND INFORMED HIM PATIENT WILL NOT BE DISCHARGED TONIGHT DUE TO [facility] BEING CLOSED, MD WILL INFORM DR. SALMERON. PATIENT HAS NO S/S OF DISTRESS/SOB OR PAIN AT THIS TIME.
--- NOTE | 2018-12-25 19:50 | NUR ---
Opening Shift Note Assumed care of patient, oriented to self, aphasic but able to answer by gesture. No S/S of distress/SOB or pain. Bed in locked position, bed alarm on, siderails up x3, call light within reach, will continue to monitor for changes Q1hr and PRN.
--- NOTE | 2018-12-25 21:05 | NUR ---
Turned patient to his side and every 2 hours, will continue care
[2018-12-25] MEDS: PHENYTOIN SODIUM 100 MG CAP PO SCH (21:24)
[2018-12-26] MEDS: SOD CHL 0.45% WITH 20MEQ KCL 1,000 ML IV SCH ×2 (03:24→11:25)
--- NOTE | 2018-12-26 04:58 | NUR ---
Patient had a bowel movement, complete linen changed and sponge bath done. Changed sacral dressing per wound care recommendation, patient tolerated well
[2018-12-26 05:42] VITALS: BP 139/93
[2018-12-26] MEDS: PHENYTOIN SODIUM 100 MG CAP PO SCH ×2 (06:33→14:00)
--- NOTE | 2018-12-26 07:05 | NUR ---
OPENING SHIFT NOTE ASSUMED CARE OF PATIENT FROM [employer]ER[employer] RN ROBERT. PATIENT IS AWAKE AND ALERT X1 (NAME). REORIENTED PATIENT TO TIME, PLACE AND SITUATION. PATIENT'S SPEECH IS UNCLEAR AND SLURRED. PATIENT IS ABLE TO COMMUNICATE THROUGH NONVERBAL GESTURES. INSTRUCTED PATIENT ON POC, PATIENT NODDED FOR UNDERSTANDING. BED IS IN LOWEST POSITION WITH SIDE RAILS PADDED AND RAISED X2, BED WHEELS LOCKED, BED ALARM ON, PATIENT ON SPECIALTY MATTRESS AND CALL LIGHT IS WITHIN REACH. WILL CONTINUE TO MONITOR.
--- NOTE | 2018-12-26 07:45 | NUR ---
TRIED TO CALL PATIENT'S SISTER FEDERICO. NUMBER IN COMPUTER AND HARD CHART ARE BOTH NON WORKING NUMBERS. CALLED [employer] FOR A DIFFERENT NUMBER FOR SISTER. PER [employer] GRAVES REGISTRATION SPECIALIST THEY HAVE THE SAME NUMBER AND ALSO [employer] (SISTER) NUMBERS. WILL CALL CARLITOS .
[2018-12-26 07:57] VITALS: BP 127/96
--- NOTE | 2018-12-26 08:30 | NUR ---
SPOKE WITH SISTER CARLITOS. INFORMED HER PATIENT IS BEING TRANSFERRED BACK TO [facility]. SISTER CONSENTED TO TRANSFER, ERIC MAY VERIFIED TRANSFER CONSENT.
[2018-12-26 09:00] VITALS: BP 127/86
[2018-12-26] MEDS: DOCUSATE ORAL LIQUID 100 MG/10 ML UD PO SCH (09:02)
[2018-12-26] MEDS: PANTOPRAZOLE 40 MG TAB PO SCH (09:02)
[2018-12-26] MEDS: cefTRIAXone 1GM/50ML D5W 50 ML IV SCH (09:02)
--- NOTE | 2018-12-26 10:03 | NUR ---
[facility]
[2018-12-26 10:26] VITALS: BP 127/96
[2018-12-26 13:00] VITALS: BP 142/87
--- NOTE | 2018-12-26 13:59 | NUR ---
Discharge instructions given as ordered. All questions and concerns addressed. Patient verbalized understanding. IV removed with catheter intact, pressure dressing applied. Medication reconciliation form completed and copy given to patient. Report given to A[place]IN at [facility]. Patient transported by [facility] transportation with all personal belongings. No distress noted at time of departure.
== END 2018-12-26 14:00 | DRG 463 ==
LOC: EDBD 14:05 → ER 14:16 → OVERFLOW 14:17 → CENTRAL 19:54
PROVIDERS: ADMIT Nurse Practitioner Acute Care; ATTEND Hospitalist
DX: N39.0 Urinary tract infection, site not specified (principal); G93.41 Metabolic encephalopathy; L89.322 Pressure ulcer of left buttock, stage 2; E44.0 Moderate protein-calorie malnutrition; E87.0 Hyperosmolality and hypernatremia; N18.3 Chronic kidney disease, stage 3 (moderate); R13.10 Dysphagia, unspecified; Z68.44 Body mass index [BMI] 60.0-69.9, adult; E86.0 Dehydration; T42.0X5A Adverse effect of hydantoin derivatives, initial encounter; E87.6 Hypokalemia; N20.0 Calculus of kidney; G40.909 Epilepsy, unspecified, not intractable, without status epilepticus; I12.9 Hypertensive chronic kidney disease with stage 1 through stage 4 chronic kidney disease, or unspecified chronic kidney disease; B96.4 Proteus (mirabilis) (morganii) as the cause of diseases classified elsewhere; Y92.89 Other specified places as the place of occurrence of the external cause; Z87.820 Personal history of traumatic brain injury
CPT/HCPCS: 36415; 51702; 74176; 80048; 80053; 80185; 81001; 82150; 83605; 83690; 85025; 87040; 87081; 87086; 87088; 87186; 92610; 96360; 97110; 97116; 97163; 97530; G0378; J0696

== ENCOUNTER 2020-12-22 12:01 | Inpatient (IN) | payer MEDICAID, MEDICARE ==
[~2020-12-22] VITALS: Ht 203.2 cm; Wt 80.0 kg
[2020-12-22] MEDS ORDERED: SODIUM CHLORIDE 0.9% 1,000 ML IV ONE (13:45)
[2020-12-22] MEDS ORDERED: cefTRIAXone 1GM/50ML D5W 50 ML IV ONE (13:45)
[2020-12-22 14:32] LABS: Basophils # (auto) 0.2 10 ^3/uL (0-0.2); Basophils % (auto) 1.1 % (0.0-2.0); Eosinophils # (auto) 0.4 10 ^3/uL (0-0.8); Eosinophils % (auto) 2.4 % (0.0-7.0); Hematocrit 42.8 % (41.0-53.0); Hemoglobin 14.6 g/dL (13.5-17.5); Lymphocytes # (auto) 4.3 10 ^3/uL (0.4-5.4); Lymphocytes % (auto) 26.5 % (10.0-50.0); Mean Corpuscular Hemoglobin 32.7 pg (28.0-32.0); Mean Corpuscular Hgb Conc. 34.1 g/dL (32.0-36.0); Monocytes # (auto) 1.8 10 ^3/uL (0-1.3); Monocytes % (auto) 10.8 % (0.0-12.0); Neutrophils # (auto) 9.6 10 ^3/uL (1.6-8.6); Neutrophils % (auto) 59.2 % (37.0-80.0); Red Blood Cells 4.46 10^6/uL (4.5-5.90); Red Cell Distribution Width 15.1 % (11.8-14.3); White Blood Cell 16.3 10^3/uL (4.4-10.8)
[2020-12-22 14:44] LABS: Alanine Aminotransferase 42 U/L (16-61); Albumin 2.2 g/dL (3.4-5.0); Anion Gap 6 (5-15); Aspartate Aminotransferase 30 U/L (15-37); Blood Urea Nitrogen 11 mg/dL (7-18); Calcium 8.2 mg/dL (8.5-10.1); Carbon Dioxide 27 mmol/L (21-32); Chloride 112 mmol/L (98-107); GFR African American 255 mL/min; GFR Non-African American 210 mL/min; Glucose 90 mg/dL (74-106); Potassium 3.3 mmol/L (3.5-5.1); Sodium 145 mmol/L (136-145)
[2020-12-22 14:49] LABS: Alkaline Phosphatase 234 U/L (45-117); Bilirubin, Total 0.3 mg/dL (0.2-1.0); Lactic Acid w/Reflex 2.1 mmol/L (0.4-2.0); Total Protein 7.4 g/dL (6.4-8.2)
[2020-12-22] MEDS: D5W/SOD CHLO 0.9% 1,000 ML IV SCH (21:30)
[2020-12-22] MEDS ORDERED: ONDANSETRON HCL 4 MG/2 ML VIAL IV PRN (21:30)
[2020-12-22] MEDS ORDERED: NITROGLYCERIN 0.4 MG SL TAB SL PRN (21:30)
[2020-12-22] MEDS ORDERED: MORPHINE SULFATE INJECTION 2 MG/ML SYRG IV PRN ×2 (21:30)
[2020-12-23 04:46] LABS: Basophils # (auto) 0.1 10 ^3/uL (0-0.2); Basophils % (auto) 0.5 % (0.0-2.0); Eosinophils # (auto) 0.4 10 ^3/uL (0-0.8); Eosinophils % (auto) 2.2 % (0.0-7.0); Hematocrit 47.3 % (41.0-53.0); Hemoglobin 15.5 g/dL (13.5-17.5); Lymphocytes # (auto) 3.9 10 ^3/uL (0.4-5.4); Lymphocytes % (auto) 21.2 % (10.0-50.0); Mean Corpuscular Hemoglobin 32.6 pg (28.0-32.0); Mean Corpuscular Hgb Conc. 32.7 g/dL (32.0-36.0); Mean Corpuscular Volume 99.6 fL (80.0-100.0); Monocytes # (auto) 1.9 10 ^3/uL (0-1.3); Monocytes % (auto) 10.2 % (0.0-12.0); Neutrophils # (auto) 12.3 10 ^3/uL (1.6-8.6); Neutrophils % (auto) 65.9 % (37.0-80.0); Nucleated Red Blood Cells % 0.2 %; Red Blood Cells 4.75 10^6/uL (4.5-5.90); Red Cell Distribution Width 15.6 % (11.8-14.3); White Blood Cell 18.6 10^3/uL (4.4-10.8)
[2020-12-23 05:18] LABS: Potassium 3.2 mmol/L (3.5-5.1)
[2020-12-23 05:26] LABS: Bilirubin, Total 0.5 mg/dL (0.2-1.0); Calcium 8.7 mg/dL (8.5-10.1); Total Protein 7.6 g/dL (6.4-8.2)
[2020-12-23] MEDS ORDERED: PHEN125S (12:23)
[2020-12-23 12:27] LABS: INR 1.1 (0.9-1.15)
[2020-12-23 13:00] VITALS: BP 112/84
[2020-12-23] MEDS: D5W/SOD CHLO 0.9% 1,000 ML IV SCH ×2 (13:45→17:30)
[2020-12-23] MEDS: PANTOPRAZOLE 40 MG/10 ML VIAL INJ IV SCH (13:45)
[2020-12-23] MEDS: cefTRIAXone 1GM/50ML D5W 50 ML IV SCH (13:46)
[2020-12-23] MEDS: ENOXAPARIN SOD 40 MG/0.4 ML SYRINGE SC SCH (13:46)
[2020-12-23] MEDS ORDERED: CEPH500C PO (16:17)
[2020-12-23 16:57] VITALS: BP 108/75
[2020-12-23 22:00] VITALS: BP 137/79
[2020-12-24 05:00] VITALS: BP 107/71
[2020-12-24 09:00] VITALS: BP 137/70
[2020-12-24] MEDS: PANTOPRAZOLE 40 MG/10 ML VIAL INJ IV SCH (10:31)
[2020-12-24] MEDS: cefTRIAXone 1GM/50ML D5W 50 ML IV SCH (10:32)
[2020-12-24] MEDS: ENOXAPARIN SOD 40 MG/0.4 ML SYRINGE SC SCH (10:32)
== END 2020-12-24 14:20 | disposition home health service (06) | DRG 463 ==
LOC: ER 12:01 → EDBD 12:01 → TELE 21:25 → TELE-CENTR 12-23 09:02
PROVIDERS: ADMIT Internal Medicine; ATTEND Internal Medicine
DX: N13.6 Pyonephrosis (principal); E87.0 Hyperosmolality and hypernatremia; E44.0 Moderate protein-calorie malnutrition; I69.351 Hemiplegia and hemiparesis following cerebral infarction affecting right dominant side; R62.7 Adult failure to thrive; R13.10 Dysphagia, unspecified; G40.909 Epilepsy, unspecified, not intractable, without status epilepticus; N18.30 Chronic kidney disease, stage 3 unspecified; Z20.822 Contact with and (suspected) exposure to COVID-19; I12.9 Hypertensive chronic kidney disease with stage 1 through stage 4 chronic kidney disease, or unspecified chronic kidney disease; I69.320 Aphasia following cerebral infarction; N40.0 Benign prostatic hyperplasia without lower urinary tract symptoms; E86.0 Dehydration; E87.6 Hypokalemia; K80.20 Calculus of gallbladder without cholecystitis without obstruction; K82.8 Other specified diseases of gallbladder; M19.90 Unspecified osteoarthritis, unspecified site; Z74.01 Bed confinement status; Z79.899 Other long term (current) drug therapy; Z68.27 Body mass index [BMI] 27.0-27.9, adult
CPT/HCPCS: 36415; 70450; 71045; 74176; 80053; 82140; 83605; 83735; 84484; 85025; 85610; 87040; 87081; 87426; 92610; 93005; 96365; C9113; G0378; J0696; J7042

== ENCOUNTER 2021-05-15 15:48 | Inpatient (IN) | payer MEDICAID ==
[~2021-05-15] VITALS: Ht 182.9 cm; Wt 80.6 kg
[~2021-05-15 15:48] MED LIST changes: -ACET-1156 PO; +CEPH500C PO; -CLO01T PO; -PHE100C PO; +PHEN125S
[2021-05-15] MEDS ORDERED: ETOMIDATE (2MG/ML) 20ML VIAL IV ONE (16:02)
[2021-05-15] MEDS ORDERED: SUCCINYLCHOLINE CHLORIDE 20 MG/ML 10ML VIAL IV ONE ×2 (16:03→16:24)
[2021-05-15] MEDS ORDERED: MIDAZOLAM HCL 0 ML IV ONE (16:05)
[2021-05-15] MEDS ORDERED: MIDAZOLAM DRIP 50 mg/50mL 50 ML IV ONE (16:06)
[2021-05-15] MEDS: MIDAZOLAM DRIP 50 mg/50mL 50 ML IV SCH (16:30)
[2021-05-15] MEDS ORDERED: VANCOMYCIN 1GM/250ML 250 ML IV ONE (16:45)
[2021-05-15] MEDS ORDERED: PIPERACILLIN-TAZOB 3.375GM 100 ML IV ONE (16:45)
[2021-05-15] MEDS ORDERED: SODIUM CHLORIDE 0.9% 1,000 ML IV ONE (16:45)
[2021-05-15] MEDS ORDERED: DexAMETHasone INJECTION 10 MG in D5W 5% 50 ML IV ONE (16:45)
[2021-05-15] MEDS ORDERED: SODIUM CHLORIDE 0.9% 2,450 ML IV ONE (17:00)
[2021-05-15 18:35] VITALS: BP 80/53
[2021-05-15] MEDS: NOREPINEPHRINE 8 MG/250ML KIT 250 ML IV SCH (18:49)
[2021-05-15 18:56] LABS: Basophils # (auto) 0.1 10 ^3/uL (0-0.2); Basophils % (auto) 0.3 % (0.0-2.0); Eosinophils # (auto) 0.1 10 ^3/uL (0-0.8); Eosinophils % (auto) 0.4 % (0.0-7.0); Hematocrit 48.9 % (41.0-53.0); Hemoglobin 16.4 g/dL (13.5-17.5); Lymphocytes # (auto) 1.6 10 ^3/uL (0.4-5.4); Mean Corpuscular Hgb Conc. 33.5 g/dL (32.0-36.0); Mean Corpuscular Volume 95.7 fL (80.0-100.0); Monocytes # (auto) 0.5 10 ^3/uL (0-1.3); Monocytes % (auto) 2.4 % (0.0-12.0); Neutrophils # (auto) 20.5 10 ^3/uL (1.6-8.6); Neutrophils % (auto) 89.9 % (37.0-80.0); Red Blood Cells 5.11 10^6/uL (4.5-5.90); Red Cell Distribution Width 15.2 % (11.8-14.3); White Blood Cell 22.8 10^3/uL (4.4-10.8)
[2021-05-15 19:13] LABS: INR 1.44 (0.9-1.15); Partial Thromboplastin Time 34.5 sec (23.6-33.0)
[2021-05-15 19:17] LABS: Albumin 2.4 g/dL (3.4-5.0); Calcium 8.9 mg/dL (8.5-10.1); Magnesium 2.5 mg/dL (1.6-2.6)
[2021-05-15 19:18] LABS: Lactic Acid w/Reflex 2.6 mmol/L (0.4-2.0)
[2021-05-15 19:22] LABS: BUN/Creatinine Ratio 33.6; Bilirubin, Total 0.5 mg/dL (0.2-1.0); Total Protein 7.7 g/dL (6.4-8.2)
[2021-05-15 20:40] LABS: Urine Bacteria MANY /hpf (None Seen); Urine Blood 1+ /uL (Negative); Urine Mucus FEW (None Seen); Urine Specific Gravity 1.015 (1.001-1.035); Urine WBC 1103 /hpf (0 - 3); Urine WBC Clumps PRESENT /hpf (None Seen)
[2021-05-15 21:50] VITALS: BP 94/60
[2021-05-16] MEDS ORDERED: NITROGLYCERIN 0.4 MG SL TAB SL PRN (01:45)
[2021-05-16] MEDS ORDERED: MORPHINE SULFATE 4 MG/ML SYR/VIAL IV PRN (01:45)
[2021-05-16] MEDS ORDERED: ONDANSETRON HCL 4 MG/2 ML VIAL IV PRN (01:45)
[2021-05-16] MEDS ORDERED: VANCOMYCIN PER PHARMACY 0 MG IV SCH (01:45)
[2021-05-16 02:04] VITALS: BP 100/68
[2021-05-16] MEDS: NOREPINEPHRINE 8 MG/250ML KIT 250 ML IV SCH ×3 (02:08→13:59)
[2021-05-16] MEDS ORDERED: VANCOMYCIN 1GM/250ML 250 ML IV ONE (02:15)
[2021-05-16 02:45] LABS: BUN/Creatinine Ratio 29.4; Calcium 9.3 mg/dL (8.5-10.1)
[2021-05-16] MEDS: POTASSIUM CHL 20MEQ/50ML 50 ML IV SCH ×2 (03:19→04:38)
[2021-05-16] MEDS: D5W 5% 1,000 ML IV SCH ×3 (04:00→17:45)
[2021-05-16] MEDS: PIPERACILLIN-TAZOB 3.375GM 100 ML IV SCH ×2 (06:50→12:20)
[2021-05-16 06:57] VITALS: BP 89/56
[2021-05-16 07:10] LABS: Hematocrit 46.8 % (41.0-53.0); Hemoglobin 15.6 g/dL (13.5-17.5); Mean Corpuscular Hemoglobin 31.8 pg (28.0-32.0); Mean Corpuscular Hgb Conc. 33.3 g/dL (32.0-36.0); Mean Corpuscular Volume 95.7 fL (80.0-100.0); Red Blood Cells 4.89 10^6/uL (4.5-5.90)
[2021-05-16] MEDS: MIDAZOLAM DRIP 50 mg/50mL 50 ML IV SCH ×2 (07:12→16:15)
[2021-05-16 07:26] LABS: BUN/Creatinine Ratio 25.5; Calcium 9.2 mg/dL (8.5-10.1); Potassium 4.4 mmol/L (3.5-5.1); White Blood Cell 35.7 10^3/uL (4.4-10.8)
[2021-05-16 07:28] LABS: Basophils % (manual) 0 (0.0-2.0); Blast Cells 0; Eosinophils % (manual) 0 (0-7); Myelocytes % 0; Promyelocytes % 0; Reactive Lymphocytes 0
[2021-05-16 07:59] LABS: Band Neutrophils % (manual) 50; Lymphocytes % (manual) 4 (10.0-50.0); Metamyelocytes % 1; Monocytes % (manual) 1 (0-12)
[2021-05-16] MEDS: PHENYTOIN 100 MG/4 ML SUSP NG SCH (09:00)
[2021-05-16] MEDS: PANTOPRAZOLE 40 MG/10 ML VIAL INJ IV SCH (09:56)
[2021-05-16] MEDS ORDERED: ENOXAPARIN SOD 40 MG/0.4 ML SYRINGE SC SCH (10:00)
[2021-05-16 10:13] LABS: Calcium 8.5 mg/dL (8.5-10.1); Potassium 4.4 mmol/L (3.5-5.1)
[2021-05-16 10:36] VITALS: BP 84/56
[2021-05-16] MEDS: PHENYLEPHRINE IV 250 ML IV SCH ×2 (11:12→15:35)
[2021-05-16] MEDS ORDERED: HYDROCORTISONE SOD SUCC 100 MG/2ML INJ VIAL IV STA (13:08)
[2021-05-16] MEDS: MEROPENEM 1GM IVPB 100 ML IV SCH ×2 (14:11→22:27)
[2021-05-16 14:38] LABS: BUN/Creatinine Ratio 22.7; Calcium 8.6 mg/dL (8.5-10.1); Potassium 3.8 mmol/L (3.5-5.1)
[2021-05-16 14:40] LABS: Vancomycin,Random 24.1 ug/mL (10-20)
[2021-05-16 14:45] LABS: Phenytoin (Dilantin) 27.4 ug/mL (10-20)
[2021-05-16 14:55] VITALS: BP 121/75
[2021-05-16 18:21] VITALS: BP 126/77
[2021-05-16 19:23] LABS: BUN/Creatinine Ratio 25.2; Calcium 8.3 mg/dL (8.5-10.1); Potassium 3.5 mmol/L (3.5-5.1)
[2021-05-16] MEDS: HYDROCORTISONE SOD SUCC 100 MG/2ML INJ VIAL IV SCH (22:27)
[2021-05-16 22:38] VITALS: BP 112/74
[2021-05-17 02:02] VITALS: BP 151/88
[2021-05-17] MEDS: D5W 5% 1,000 ML IV SCH ×2 (03:11→09:45)
[2021-05-17] MEDS: PHENYLEPHRINE IV 250 ML IV SCH ×3 (04:05→21:45)
[2021-05-17] MEDS: MEROPENEM 1GM IVPB 100 ML IV SCH ×3 (06:30→22:00)
[2021-05-17] MEDS: HYDROCORTISONE SOD SUCC 100 MG/2ML INJ VIAL IV SCH ×3 (06:31→22:16)
[2021-05-17 06:50] VITALS: BP 108/73
[2021-05-17 07:36] LABS: Hemoglobin 13.4 g/dL (13.5-17.5)
[2021-05-17 07:39] LABS: Hematocrit 39.6 % (41.0-53.0); Mean Corpuscular Hgb Conc. 33.9 g/dL (32.0-36.0); Mean Corpuscular Volume 94.2 fL (80.0-100.0); Red Blood Cells 4.21 10^6/uL (4.5-5.90); Red Cell Distribution Width 15.4 % (11.8-14.3)
[2021-05-17 07:53] LABS: INR 1.62 (0.9-1.15); Partial Thromboplastin Time 39.4 sec (23.6-33.0)
[2021-05-17 08:07] LABS: BUN/Creatinine Ratio 23.5; Calcium 8.6 mg/dL (8.5-10.1)
[2021-05-17 08:09] LABS: Basophils % (manual) 0 (0.0-2.0); Eosinophils % (manual) 0 (0-7); Metamyelocytes % 0
[2021-05-17 08:10] LABS: Blast Cells 0; Myelocytes % 0; Promyelocytes % 0; Reactive Lymphocytes 0
[2021-05-17 08:20] LABS: Potassium 2.9 mmol/L (3.5-5.1)
[2021-05-17 08:25] LABS: Band Neutrophils % (manual) 22; Lymphocytes % (manual) 9 (10.0-50.0); Monocytes % (manual) 2 (0-12)
[2021-05-17 09:40] VITALS: BP 120/79
[2021-05-17] MEDS: ENOXAPARIN SOD 80 MG/0.8ML SYRINGE SC SCH ×2 (09:45→22:16)
[2021-05-17] MEDS: PANTOPRAZOLE 40 MG/10 ML VIAL INJ IV SCH (09:45)
[2021-05-17] MEDS: VANCOMYCIN 1GM/250ML 250 ML IV SCH ×2 (10:00→22:16)
[2021-05-17] MEDS ORDERED: POTASSIUM EFFERVESENT TAB 25 MEQ GT ONE (10:30)
[2021-05-17] MEDS: POTASSIUM CHL 20MEQ/50ML 50 ML IV SCH ×3 (10:30→14:30)
[2021-05-17 14:07] VITALS: BP 102/64
[2021-05-17 18:25] VITALS: BP 120/74
[2021-05-17] MEDS: NOREPINEPHRINE 8 MG/250ML KIT 250 ML IV SCH (19:11)
[2021-05-17 22:21] VITALS: BP 155/83
[2021-05-18] MEDS: PHENYLEPHRINE IV 250 ML IV SCH ×3 (03:33→21:20)
[2021-05-18] MEDS: MEROPENEM 1GM IVPB 100 ML IV SCH ×3 (06:00→22:00)
[2021-05-18] MEDS: HYDROCORTISONE SOD SUCC 100 MG/2ML INJ VIAL IV SCH (06:40)
[2021-05-18 07:36] VITALS: BP 94/58
[2021-05-18] MEDS: ENOXAPARIN SOD 80 MG/0.8ML SYRINGE SC SCH ×2 (10:00→23:15)
[2021-05-18 10:32] LABS: CSF White Blood Cells 1 CUMM (0-5)
[2021-05-18 10:46] VITALS: BP 111/70
[2021-05-18 10:57] LABS: Hemoglobin 12.7 g/dL (13.5-17.5)
[2021-05-18 10:59] LABS: Hematocrit 37.8 % (41.0-53.0); Mean Corpuscular Hemoglobin 31.5 pg (28.0-32.0); Mean Corpuscular Hgb Conc. 33.7 g/dL (32.0-36.0); Mean Corpuscular Volume 93.6 fL (80.0-100.0); Red Blood Cells 4.04 10^6/uL (4.5-5.90); Red Cell Distribution Width 14.9 % (11.8-14.3)
[2021-05-18 11:12] LABS: Potassium 3.9 mmol/L (3.5-5.1)
[2021-05-18 11:21] LABS: White Blood Cell 31.2 10^3/uL (4.4-10.8)
[2021-05-18 11:23] LABS: Basophils % (manual) 0 (0.0-2.0); Blast Cells 0; Eosinophils % (manual) 0 (0-7); Myelocytes % 0; Promyelocytes % 0; Reactive Lymphocytes 0
[2021-05-18 11:24] LABS: BUN/Creatinine Ratio 29.8; Calcium 8.3 mg/dL (8.5-10.1)
[2021-05-18] MEDS: VANCOMYCIN 1GM/250ML 250 ML IV SCH ×2 (12:00→23:13)
[2021-05-18] MEDS: PANTOPRAZOLE 40 MG/10 ML VIAL INJ IV SCH (12:00)
[2021-05-18 13:42] VITALS: BP 119/74
[2021-05-18 16:02] LABS: Band Neutrophils % (manual) 2; Lymphocytes % (manual) 3 (10.0-50.0); Metamyelocytes % 1; Monocytes % (manual) 9 (0-12)
[2021-05-18] MEDS: MIDAZOLAM DRIP 50 mg/50mL 50 ML IV SCH (16:15)
[2021-05-18] MEDS: D5W 5% 1,000 ML IV SCH (16:30)
[2021-05-18 17:03] LABS: Protein, CSF 84.9 mg/dL (15-45)
[2021-05-18 18:39] VITALS: BP 136/83
[2021-05-18] MEDS: NOREPINEPHRINE 8 MG/250ML KIT 250 ML IV SCH (18:45)
[2021-05-18 22:05] VITALS: BP 103/62
[2021-05-19] VITALS (26 sets, daily range): BP systolic 89–114; BP diastolic 59–86
[2021-05-19] MEDS ORDERED: ATROPINE SULF 1 MG/10ml SYR ONE (02:53)
[2021-05-19] MEDS: D5W 5% 1,000 ML IV SCH ×4 (04:35→20:45)
[2021-05-19 04:55] LABS: Basophils # (auto) 0.1 10 ^3/uL (0-0.2); Basophils % (auto) 0.3 % (0.0-2.0); Eosinophils # (auto) 0.1 10 ^3/uL (0-0.8); Eosinophils % (auto) 0.3 % (0.0-7.0); Hemoglobin 11.7 g/dL (13.5-17.5); Lymphocytes % (auto) 15.9 % (10.0-50.0); Mean Corpuscular Hemoglobin 32.3 pg (28.0-32.0); Mean Corpuscular Hgb Conc. 34.4 g/dL (32.0-36.0); Mean Corpuscular Volume 93.8 fL (80.0-100.0); Monocytes # (auto) 0.9 10 ^3/uL (0-1.3); Monocytes % (auto) 3.8 % (0.0-12.0); Neutrophils # (auto) 19.9 10 ^3/uL (1.6-8.6); Neutrophils % (auto) 79.7 % (37.0-80.0); Nucleated Red Blood Cells % 0.2 %; Red Blood Cells 3.63 10^6/uL (4.5-5.90); Red Cell Distribution Width 15.2 % (11.8-14.3); White Blood Cell 24.9 10^3/uL (4.4-10.8)
[2021-05-19 05:11] LABS: BUN/Creatinine Ratio 38.2
[2021-05-19] MEDS: PHENYLEPHRINE IV 250 ML IV SCH ×3 (05:39→21:15)
[2021-05-19] MEDS: MEROPENEM 1GM IVPB 100 ML IV SCH ×3 (06:21→21:13)
[2021-05-19] MEDS: PANTOPRAZOLE 40 MG/10 ML VIAL INJ IV SCH (09:59)
[2021-05-19] MEDS: ENOXAPARIN SOD 80 MG/0.8ML SYRINGE SC SCH ×2 (09:59→21:13)
[2021-05-19] MEDS: POTASSIUM CHL 20MEQ/50ML 50 ML IV SCH ×3 (10:49→14:57)
[2021-05-19] MEDS: FREE WATER GT SCH ×3 (14:08→21:13)
[2021-05-19] MEDS: MIDAZOLAM DRIP 50 mg/50mL 50 ML IV SCH (16:15)
[2021-05-19] MEDS ORDERED: SODIUM CHLORIDE LOCK 0 ML ONE (16:37)
[2021-05-19] MEDS ORDERED: MIDAZOLAM HCL 5 MG/ML-1ML VIAL ONE ×2 (16:37→16:42)
[2021-05-19] MEDS ORDERED: LIDOCAINE HCL 2% TOP JELLY 5ML TOP ONE (16:37)
[2021-05-19] MEDS ORDERED: fentaNYL CITRATE 100 MCG/2 ML VL ONE (16:38)
[2021-05-19] MEDS: NOREPINEPHRINE 8 MG/250ML KIT 250 ML IV SCH (18:45)
[2021-05-20] VITALS (30 sets, daily range): BP systolic 95–125; BP diastolic 66–82
[2021-05-20] MEDS: FREE WATER GT SCH ×6 (02:04→22:10)
[2021-05-20 03:27] LABS: Basophils # (auto) 0.1 10 ^3/uL (0-0.2); Basophils % (auto) 0.3 % (0.0-2.0); Eosinophils # (auto) 0.3 10 ^3/uL (0-0.8); Eosinophils % (auto) 1.7 % (0.0-7.0); Hematocrit 35.5 % (41.0-53.0); Hemoglobin 11.8 g/dL (13.5-17.5); Lymphocytes # (auto) 3.7 10 ^3/uL (0.4-5.4); Lymphocytes % (auto) 20.1 % (10.0-50.0); Mean Corpuscular Hemoglobin 31.3 pg (28.0-32.0); Mean Corpuscular Hgb Conc. 33.3 g/dL (32.0-36.0); Mean Corpuscular Volume 94.1 fL (80.0-100.0); Monocytes # (auto) 1.5 10 ^3/uL (0-1.3); Monocytes % (auto) 8.3 % (0.0-12.0); Neutrophils # (auto) 12.8 10 ^3/uL (1.6-8.6); Neutrophils % (auto) 69.6 % (37.0-80.0); Nucleated Red Blood Cells % 0.2 %; Red Blood Cells 3.77 10^6/uL (4.5-5.90); Red Cell Distribution Width 14.8 % (11.8-14.3); White Blood Cell 18.4 10^3/uL (4.4-10.8)
[2021-05-20 03:58] LABS: Calcium 8.2 mg/dL (8.5-10.1); Potassium 3.5 mmol/L (3.5-5.1)
[2021-05-20 04:00] LABS: BUN/Creatinine Ratio 35.5
[2021-05-20] MEDS: MEROPENEM 1GM IVPB 100 ML IV SCH ×3 (05:50→22:10)
[2021-05-20] MEDS: PHENYLEPHRINE IV 250 ML IV SCH ×3 (06:28→23:20)
[2021-05-20] MEDS: MIDAZOLAM DRIP 50 mg/50mL 50 ML IV SCH (10:00)
[2021-05-20] MEDS: PANTOPRAZOLE 40 MG/10 ML VIAL INJ IV SCH (10:00)
[2021-05-20] MEDS: ENOXAPARIN SOD 80 MG/0.8ML SYRINGE SC SCH ×2 (10:07→22:10)
[2021-05-20] MEDS: SOD CHL 0.45% WITH 20MEQ KCL 1,000 ML IV SCH ×2 (10:50→18:12)
[2021-05-20] MEDS: NOREPINEPHRINE 8 MG/250ML KIT 250 ML IV SCH (16:00)
[2021-05-21] VITALS (29 sets, daily range): BP systolic 93–122; BP diastolic 42–81
[2021-05-21] MEDS: FREE WATER GT SCH (02:25)
[2021-05-21] MEDS: MIDAZOLAM DRIP 50 mg/50mL 50 ML IV SCH (03:01)
[2021-05-21 03:31] LABS: Hematocrit 33.4 % (41.0-53.0); Hemoglobin 11.4 g/dL (13.5-17.5); Mean Corpuscular Hgb Conc. 34.1 g/dL (32.0-36.0); Mean Corpuscular Volume 93.9 fL (80.0-100.0); Red Blood Cells 3.56 10^6/uL (4.5-5.90); Red Cell Distribution Width 14.9 % (11.8-14.3); White Blood Cell 14.8 10^3/uL (4.4-10.8)
[2021-05-21 03:50] LABS: Calcium 7.4 mg/dL (8.5-10.1); Potassium 3.8 mmol/L (3.5-5.1)
[2021-05-21 03:52] LABS: BUN/Creatinine Ratio 29.2
[2021-05-21] MEDS: SOD CHL 0.45% WITH 20MEQ KCL 1,000 ML IV SCH ×3 (06:42→18:50)
[2021-05-21] MEDS: MEROPENEM 1GM IVPB 100 ML IV SCH ×3 (06:43→21:49)
[2021-05-21 07:21] LABS: Basophils % (manual) 0 (0.0-2.0); Blast Cells 0; Metamyelocytes % 0; Promyelocytes % 0; Reactive Lymphocytes 0
[2021-05-21] MEDS: PHENYLEPHRINE IV 250 ML IV SCH ×2 (07:40→15:08)
[2021-05-21 08:26] LABS: Band Neutrophils % (manual) 1; Eosinophils % (manual) 4 (0-7); Lymphocytes % (manual) 25 (10.0-50.0); Monocytes % (manual) 10 (0-12); Myelocytes % 1
[2021-05-21] MEDS: PANTOPRAZOLE 40 MG/10 ML VIAL INJ IV SCH (09:55)
[2021-05-21] MEDS: ENOXAPARIN SOD 80 MG/0.8ML SYRINGE SC SCH ×2 (09:55→22:00)
[2021-05-21] MEDS: NOREPINEPHRINE 8 MG/250ML KIT 250 ML IV SCH (18:45)
[2021-05-21] MEDS: PHENYTOIN 100 MG/4 ML SUSP NG SCH (21:49)
[2021-05-22] VITALS (38 sets, daily range): BP systolic 89–132; BP diastolic 54–80
[2021-05-22] MEDS: PHENYLEPHRINE IV 250 ML IV SCH ×3 (00:20→16:56)
[2021-05-22] MEDS: SOD CHL 0.45% WITH 20MEQ KCL 1,000 ML IV SCH ×3 (03:10→19:50)
[2021-05-22 03:32] LABS: Hematocrit 34.7 % (41.0-53.0); Hemoglobin 11.6 g/dL (13.5-17.5); Mean Corpuscular Hemoglobin 31.4 pg (28.0-32.0); Mean Corpuscular Hgb Conc. 33.4 g/dL (32.0-36.0); Red Blood Cells 3.69 10^6/uL (4.5-5.90); Red Cell Distribution Width 14.6 % (11.8-14.3)
[2021-05-22 03:43] LABS: BUN/Creatinine Ratio 21.6; Calcium 8.1 mg/dL (8.5-10.1); Potassium 3.3 mmol/L (3.5-5.1)
[2021-05-22 05:05] LABS: Basophils % (manual) 0 (0.0-2.0); Blast Cells 0; Metamyelocytes % 0; Promyelocytes % 0; Reactive Lymphocytes 0
[2021-05-22] MEDS: MEROPENEM 1GM IVPB 100 ML IV SCH ×3 (06:00→21:24)
[2021-05-22] MEDS: PHENYTOIN 100 MG/4 ML SUSP NG SCH ×3 (06:00→21:24)
[2021-05-22 08:39] LABS: Band Neutrophils % (manual) 2; Eosinophils % (manual) 3 (0-7); Lymphocytes % (manual) 20 (10.0-50.0); Monocytes % (manual) 11 (0-12); Myelocytes % 1
[2021-05-22] MEDS: PANTOPRAZOLE 40 MG/10 ML VIAL INJ IV SCH (09:39)
[2021-05-22] MEDS: MUPIROCIN 2% OINT 15gm or 22gm EACHNOSTRI SCH ×2 (09:39→21:24)
[2021-05-22] MEDS: ENOXAPARIN SOD 80 MG/0.8ML SYRINGE SC SCH ×2 (09:39→21:25)
[2021-05-22] MEDS: ALBUTEROL SULF 2.5 MG/0.5ML(0.5%) NEB SOLN NEB PRN ×2 (10:44→15:21)
[2021-05-22] MEDS ORDERED: MORPHINE SULFATE INJECTION 2 MG/ML SYRG IV PRN (15:15)
[2021-05-22] MEDS: POTASSIUM CHL 20MEQ/50ML 50 ML IV SCH ×2 (15:45→16:57)
[2021-05-22] MEDS: MIDAZOLAM DRIP 50 mg/50mL 50 ML IV SCH (16:24)
[2021-05-22] MEDS: NOREPINEPHRINE 8 MG/250ML KIT 250 ML IV SCH (18:17)
[2021-05-23] VITALS (33 sets, daily range): BP systolic 99–156; BP diastolic 59–91
[2021-05-23 03:55] LABS: Hemoglobin 11.3 g/dL (13.5-17.5); Mean Corpuscular Hemoglobin 32.1 pg (28.0-32.0); Mean Corpuscular Hgb Conc. 34.2 g/dL (32.0-36.0); Mean Corpuscular Volume 93.7 fL (80.0-100.0); Red Blood Cells 3.52 10^6/uL (4.5-5.90); Red Cell Distribution Width 14.8 % (11.8-14.3); White Blood Cell 15.1 10^3/uL (4.4-10.8)
[2021-05-23] MEDS: SOD CHL 0.45% WITH 20MEQ KCL 1,000 ML IV SCH ×2 (04:00→08:24)
[2021-05-23 04:30] LABS: BUN/Creatinine Ratio 21.1; Calcium 7.8 mg/dL (8.5-10.1); Potassium 4.1 mmol/L (3.5-5.1)
[2021-05-23 05:01] LABS: Basophils % (manual) 0 (0.0-2.0); Blast Cells 0; Metamyelocytes % 0; Promyelocytes % 0; Reactive Lymphocytes 0
[2021-05-23] MEDS: MEROPENEM 1GM IVPB 100 ML IV SCH ×3 (05:13→21:58)
[2021-05-23 07:04] LABS: Eosinophils % (manual) 7 (0-7); Lymphocytes % (manual) 23 (10.0-50.0); Myelocytes % 2
[2021-05-23 07:05] LABS: Band Neutrophils % (manual) 3; Monocytes % (manual) 13 (0-12)
[2021-05-23] MEDS: PHENYTOIN 100 MG/4 ML SUSP NG SCH ×3 (08:45→21:33)
[2021-05-23] MEDS: PHENYLEPHRINE IV 250 ML IV SCH ×2 (09:40→18:00)
[2021-05-23] MEDS: PANTOPRAZOLE 40 MG/10 ML VIAL INJ IV SCH (10:02)
[2021-05-23] MEDS: MUPIROCIN 2% OINT 15gm or 22gm EACHNOSTRI SCH ×2 (10:02→21:31)
[2021-05-23] MEDS: ENOXAPARIN SOD 80 MG/0.8ML SYRINGE SC SCH ×2 (10:02→21:33)
[2021-05-23] MEDS: NOREPINEPHRINE 8 MG/250ML KIT 250 ML IV SCH (12:59)
[2021-05-24] VITALS (30 sets, daily range): BP systolic 87–113; BP diastolic 55–75
[2021-05-24] MEDS: PHENYLEPHRINE IV 250 ML IV SCH ×3 (02:20→19:00)
[2021-05-24] MEDS: SOD CHL 0.45% WITH 20MEQ KCL 1,000 ML IV SCH ×3 (03:18→13:18)
[2021-05-24] MEDS: MEROPENEM 1GM IVPB 100 ML IV SCH ×3 (06:14→22:00)
[2021-05-24] MEDS: PHENYTOIN 100 MG/4 ML SUSP NG SCH ×3 (06:15→22:00)
[2021-05-24] MEDS: MUPIROCIN 2% OINT 15gm or 22gm EACHNOSTRI SCH ×2 (10:16→22:00)
[2021-05-24] MEDS: PANTOPRAZOLE 40 MG/10 ML VIAL INJ IV SCH (10:16)
[2021-05-24] MEDS: ENOXAPARIN SOD 80 MG/0.8ML SYRINGE SC SCH ×2 (10:16→22:00)
[2021-05-24] MEDS: NOREPINEPHRINE 8 MG/250ML KIT 250 ML IV SCH (18:45)
[2021-05-25] VITALS (32 sets, daily range): BP systolic 101–162; BP diastolic 61–94
[2021-05-25] MEDS: SOD CHL 0.45% WITH 20MEQ KCL 1,000 ML IV SCH ×3 (03:20→20:00)
[2021-05-25] MEDS: PHENYLEPHRINE IV 250 ML IV SCH ×3 (03:20→20:00)
[2021-05-25] MEDS: MEROPENEM 1GM IVPB 100 ML IV SCH (06:00)
[2021-05-25] MEDS: PHENYTOIN 100 MG/4 ML SUSP NG SCH ×3 (06:00→22:00)
[2021-05-25] MEDS: PANTOPRAZOLE 40 MG/10 ML VIAL INJ IV SCH (09:36)
[2021-05-25] MEDS: MUPIROCIN 2% OINT 15gm or 22gm EACHNOSTRI SCH ×2 (09:36→22:00)
[2021-05-25] MEDS: ENOXAPARIN SOD 80 MG/0.8ML SYRINGE SC SCH ×2 (09:36→22:00)
[2021-05-25 15:43] LABS: Hematocrit 33.9 % (41.0-53.0); Hemoglobin 11.7 g/dL (13.5-17.5); Mean Corpuscular Hemoglobin 32.2 pg (28.0-32.0); Mean Corpuscular Hgb Conc. 34.5 g/dL (32.0-36.0); Mean Corpuscular Volume 93.5 fL (80.0-100.0); Red Blood Cells 3.63 10^6/uL (4.5-5.90); White Blood Cell 12.9 10^3/uL (4.4-10.8)
[2021-05-25 15:44] LABS: Band Neutrophils % (manual) 0; Basophils % (manual) 0 (0.0-2.0); Blast Cells 0; Metamyelocytes % 0; Myelocytes % 0; Promyelocytes % 0; Reactive Lymphocytes 0
[2021-05-25 15:57] LABS: BUN/Creatinine Ratio 9.3; Calcium 8.2 mg/dL (8.5-10.1); Potassium 4.1 mmol/L (3.5-5.1)
[2021-05-25 16:34] LABS: Eosinophils % (manual) 1 (0-7); Lymphocytes % (manual) 16 (10.0-50.0); Monocytes % (manual) 12 (0-12)
[2021-05-25] MEDS: NOREPINEPHRINE 8 MG/250ML KIT 250 ML IV SCH (17:42)
[2021-05-26] VITALS (25 sets, daily range): BP systolic 98–162; BP diastolic 58–94
[2021-05-26] MEDS: SOD CHL 0.45% WITH 20MEQ KCL 1,000 ML IV SCH ×3 (04:00→23:50)
[2021-05-26] MEDS: PHENYLEPHRINE IV 250 ML IV SCH ×3 (04:20→21:00)
[2021-05-26] MEDS: PHENYTOIN 100 MG/4 ML SUSP NG SCH ×3 (06:00→22:00)
[2021-05-26 06:51] LABS: Hematocrit 29.1 % (41.0-53.0); Hemoglobin 9.8 g/dL (13.5-17.5); Mean Corpuscular Hemoglobin 31.8 pg (28.0-32.0); Mean Corpuscular Hgb Conc. 33.8 g/dL (32.0-36.0); Mean Corpuscular Volume 94.2 fL (80.0-100.0); Red Blood Cells 3.09 10^6/uL (4.5-5.90); Red Cell Distribution Width 15.2 % (11.8-14.3); White Blood Cell 12.1 10^3/uL (4.4-10.8)
[2021-05-26 06:55] LABS: Basophils % (manual) 0 (0.0-2.0); Blast Cells 0; Metamyelocytes % 0; Myelocytes % 0; Promyelocytes % 0; Reactive Lymphocytes 0
[2021-05-26 07:23] LABS: BUN/Creatinine Ratio 11.5; Magnesium 1.9 mg/dL (1.6-2.6); Potassium 3.8 mmol/L (3.5-5.1)
[2021-05-26 08:01] LABS: Band Neutrophils % (manual) 1; Eosinophils % (manual) 3 (0-7); Lymphocytes % (manual) 16 (10.0-50.0); Monocytes % (manual) 8 (0-12)
[2021-05-26] MEDS: PANTOPRAZOLE 40 MG/10 ML VIAL INJ IV SCH (09:00)
[2021-05-26] MEDS: MUPIROCIN 2% OINT 15gm or 22gm EACHNOSTRI SCH ×2 (09:00→22:00)
[2021-05-26] MEDS: ENOXAPARIN SOD 80 MG/0.8ML SYRINGE SC SCH ×2 (09:01→22:00)
[2021-05-26] MEDS: NOREPINEPHRINE 8 MG/250ML KIT 250 ML IV SCH (18:01)
[2021-05-27] VITALS (30 sets, daily range): BP systolic 76–165; BP diastolic 51–84
[2021-05-27] MEDS: PHENYLEPHRINE IV 250 ML IV SCH ×3 (05:20→22:00)
[2021-05-27] MEDS: PHENYTOIN 100 MG/4 ML SUSP NG SCH ×3 (06:00→22:00)
[2021-05-27] MEDS: PANTOPRAZOLE 40 MG/10 ML VIAL INJ IV SCH (09:23)
[2021-05-27] MEDS: ENOXAPARIN SOD 80 MG/0.8ML SYRINGE SC SCH ×2 (09:23→22:00)
[2021-05-27] MEDS: SOD CHL 0.45% WITH 20MEQ KCL 1,000 ML IV SCH ×2 (14:03→23:00)
[2021-05-27] MEDS: NOREPINEPHRINE 8 MG/250ML KIT 250 ML IV SCH (17:29)
[2021-05-28] VITALS (32 sets, daily range): BP systolic 95–127; BP diastolic 62–87
[2021-05-28] MEDS: PHENYTOIN 100 MG/4 ML SUSP NG SCH ×3 (06:00→22:00)
[2021-05-28] MEDS: PHENYLEPHRINE IV 250 ML IV SCH ×3 (06:20→23:00)
[2021-05-28] MEDS: PANTOPRAZOLE 40 MG/10 ML VIAL INJ IV SCH (09:26)
[2021-05-28] MEDS: ENOXAPARIN SOD 80 MG/0.8ML SYRINGE SC SCH (09:26)
[2021-05-28] MEDS: SOD CHL 0.45% WITH 20MEQ KCL 1,000 ML IV SCH ×3 (09:26→21:55)
[2021-05-28] MEDS: NOREPINEPHRINE 8 MG/250ML KIT 250 ML IV SCH (16:16)
[2021-05-28] MEDS ORDERED: PHENYTOIN 100 MG/4 ML SUSP ONE (21:49)
[2021-05-28] MEDS: ALBUTEROL SULF 2.5 MG/0.5ML(0.5%) NEB SOLN NEB PRN (22:32)
[2021-05-29] VITALS (27 sets, daily range): BP systolic 92–142; BP diastolic 48–94
[2021-05-29 04:58] LABS: Basophils # (auto) 0.1 10 ^3/uL (0-0.2); Eosinophils # (auto) 0.2 10 ^3/uL (0-0.8); Hemoglobin 10.2 g/dL (13.5-17.5); Nucleated Red Blood Cells % 0.1 %
[2021-05-29 05:00] LABS: Basophils % (auto) 1.5 % (0.0-2.0); Eosinophils % (auto) 2.5 % (0.0-7.0); Hematocrit 30.5 % (41.0-53.0); Lymphocytes # (auto) 2.6 10 ^3/uL (0.4-5.4); Lymphocytes % (auto) 29.1 % (10.0-50.0); Mean Corpuscular Hemoglobin 31.6 pg (28.0-32.0); Mean Corpuscular Hgb Conc. 33.5 g/dL (32.0-36.0); Mean Corpuscular Volume 94.2 fL (80.0-100.0); Monocytes # (auto) 1.2 10 ^3/uL (0-1.3); Monocytes % (auto) 13.1 % (0.0-12.0); Neutrophils # (auto) 4.8 10 ^3/uL (1.6-8.6); Neutrophils % (auto) 53.8 % (37.0-80.0); Red Blood Cells 3.24 10^6/uL (4.5-5.90); Red Cell Distribution Width 15.5 % (11.8-14.3); White Blood Cell 8.9 10^3/uL (4.4-10.8)
[2021-05-29 05:20] LABS: Potassium 4.4 mmol/L (3.5-5.1)
[2021-05-29 05:27] LABS: Albumin 1.3 g/dL (3.4-5.0); BUN/Creatinine Ratio 8.3; Calcium 7.7 mg/dL (8.5-10.1)
[2021-05-29 05:34] LABS: Partial Thromboplastin Time 70.9 sec (23.6-33.0)
[2021-05-29 05:40] LABS: Bilirubin, Total 0.5 mg/dL (0.2-1.0); Total Protein 4.7 g/dL (6.4-8.2)
[2021-05-29] MEDS: PHENYTOIN 100 MG/4 ML SUSP NG SCH ×3 (06:00→22:00)
[2021-05-29] MEDS: PHENYLEPHRINE IV 250 ML IV SCH ×2 (07:20→08:13)
[2021-05-29] MEDS: PANTOPRAZOLE 40 MG/10 ML VIAL INJ IV SCH (08:12)
[2021-05-29] MEDS: NOREPINEPHRINE 8 MG/250ML KIT 250 ML IV SCH (15:08)
[2021-05-29] MEDS: SOD CHL 0.45% WITH 20MEQ KCL 1,000 ML IV SCH ×2 (15:08→17:05)
[2021-05-29] MEDS: Jevity 1.2 Cal/Fiber 1 Liter GT SCH (22:00)
[2021-05-30] VITALS (29 sets, daily range): BP systolic 87–131; BP diastolic 40–81
[2021-05-30] MEDS: PHENYTOIN 100 MG/4 ML SUSP NG SCH ×3 (06:00→22:21)
[2021-05-30] MEDS: PHENYLEPHRINE IV 250 ML IV SCH ×5 (08:20→22:21)
[2021-05-30] MEDS: PANTOPRAZOLE 40 MG/10 ML VIAL INJ IV SCH (10:43)
[2021-05-30 18:36] LABS: INR 1.31 (0.9-1.15)
[2021-05-30] MEDS: NOREPINEPHRINE 8 MG/250ML KIT 250 ML IV SCH (18:45)
[2021-05-30] MEDS: SOD CHL 0.45% WITH 20MEQ KCL 1,000 ML IV SCH ×2 (22:21)
[2021-05-31] VITALS (30 sets, daily range): BP systolic 80–161; BP diastolic 50–91
[2021-05-31 04:36] LABS: Basophils # (auto) 0 10 ^3/uL (0-0.2); Basophils % (auto) 0.2 % (0.0-2.0); Eosinophils # (auto) 0.3 10 ^3/uL (0-0.8); Eosinophils % (auto) 3.4 % (0.0-7.0); Hematocrit 33.1 % (41.0-53.0); Hemoglobin 11.2 g/dL (13.5-17.5); Lymphocytes # (auto) 2.5 10 ^3/uL (0.4-5.4); Lymphocytes % (auto) 27.5 % (10.0-50.0); Mean Corpuscular Hemoglobin 31.8 pg (28.0-32.0); Mean Corpuscular Hgb Conc. 33.9 g/dL (32.0-36.0); Mean Corpuscular Volume 93.7 fL (80.0-100.0); Monocytes # (auto) 1.4 10 ^3/uL (0-1.3); Monocytes % (auto) 15.3 % (0.0-12.0); Neutrophils # (auto) 4.9 10 ^3/uL (1.6-8.6); Neutrophils % (auto) 53.6 % (37.0-80.0); Nucleated Red Blood Cells % 0.1 %; Red Blood Cells 3.53 10^6/uL (4.5-5.90); Red Cell Distribution Width 15.3 % (11.8-14.3); White Blood Cell 9.2 10^3/uL (4.4-10.8)
[2021-05-31 04:55] LABS: INR 1.21 (0.9-1.15); Partial Thromboplastin Time 41.3 sec (23.6-33.0)
[2021-05-31 04:56] LABS: Albumin 1.4 g/dL (3.4-5.0); Calcium 8.3 mg/dL (8.5-10.1); Potassium 3.7 mmol/L (3.5-5.1)
[2021-05-31 04:59] LABS: BUN/Creatinine Ratio 5.3
[2021-05-31 05:02] LABS: Bilirubin, Total 0.5 mg/dL (0.2-1.0)
[2021-05-31] MEDS: PHENYTOIN 100 MG/4 ML SUSP NG SCH ×3 (05:39→22:00)
[2021-05-31] MEDS: PANTOPRAZOLE 40 MG/10 ML VIAL INJ IV SCH (10:17)
[2021-05-31] MEDS: NOREPINEPHRINE 8 MG/250ML KIT 250 ML IV SCH (10:18)
[2021-05-31] MEDS: SOD CHL 0.45% WITH 20MEQ KCL 1,000 ML IV SCH (15:44)
[2021-05-31] MEDS: PHENYLEPHRINE IV 250 ML IV SCH (17:40)
[2021-06-01] VITALS (32 sets, daily range): BP systolic 88–126; BP diastolic 57–78
[2021-06-01] MEDS: PHENYLEPHRINE IV 250 ML IV SCH (02:00)
[2021-06-01] MEDS: SOD CHL 0.45% WITH 20MEQ KCL 1,000 ML IV SCH ×2 (02:12→15:17)
[2021-06-01 05:09] LABS: Eosinophils # (auto) 0.2 10 ^3/uL (0-0.8); Hemoglobin 10.4 g/dL (13.5-17.5); Monocytes # (auto) 1.5 10 ^3/uL (0-1.3); Neutrophils # (auto) 7.3 10 ^3/uL (1.6-8.6); Neutrophils % (auto) 65.7 % (37.0-80.0); Red Cell Distribution Width 15.7 % (11.8-14.3)
[2021-06-01 05:11] LABS: Basophils # (auto) 0.1 10 ^3/uL (0-0.2); Basophils % (auto) 0.6 % (0.0-2.0); Eosinophils % (auto) 1.9 % (0.0-7.0); Hematocrit 31.2 % (41.0-53.0); Mean Corpuscular Hemoglobin 31.6 pg (28.0-32.0); Mean Corpuscular Hgb Conc. 33.5 g/dL (32.0-36.0); Mean Corpuscular Volume 94.4 fL (80.0-100.0); Monocytes % (auto) 13.8 % (0.0-12.0)
[2021-06-01 05:23] LABS: INR 1.16 (0.9-1.15); Partial Thromboplastin Time 37.5 sec (23.6-33.0)
[2021-06-01 05:36] LABS: Albumin 1.3 g/dL (3.4-5.0); BUN/Creatinine Ratio 10.7; Calcium 8.2 mg/dL (8.5-10.1); Potassium 4.4 mmol/L (3.5-5.1)
[2021-06-01 05:39] LABS: Bilirubin, Total 0.4 mg/dL (0.2-1.0)
[2021-06-01] MEDS: PHENYTOIN 100 MG/4 ML SUSP NG SCH ×2 (05:59→14:00)
[2021-06-01] MEDS: PANTOPRAZOLE 40 MG/10 ML VIAL INJ IV SCH (10:00)
[2021-06-01] MEDS ORDERED: LIDOCAINE W/ EPINEPHRINE 1% 20ML VIAL ONE (13:19)
[2021-06-01] MEDS ORDERED: HYDROmorphone HCL 2 MG/ML VL ONE (14:05)
[2021-06-01] MEDS ORDERED: MIDAZOLAM HCL 2MG/2ML 2ml VIAL (1mg/ml) ONE (14:05)
[2021-06-01] MEDS ORDERED: fentaNYL CITRATE 100 MCG/2 ML VL ONE (14:05)
[2021-06-01] MEDS ORDERED: LABETALOL HCL 5 MG/ML 4ML SYRINGE IV PRN (14:15)
[2021-06-01] MEDS ORDERED: ONDANSETRON HCL 4 MG/2 ML VIAL IV PRN (14:15)
[2021-06-01] MEDS ORDERED: MORPHINE SULFATE 4 MG/ML SYR/VIAL IV PRN (14:15)
[2021-06-01] MEDS ORDERED: MIDAZOLAM HCL 2MG/2ML 2ml VIAL (1mg/ml) IV PRN (14:15)
[2021-06-01] MEDS ORDERED: ePHEDrine SULFATE 50 MG/ML AMP IV PRN (14:15)
[2021-06-01] MEDS ORDERED: HYDROmorphone HCL 2 MG/ML VL IV PRN (14:15)
[2021-06-01] MEDS ORDERED: PROPOFOL 10 MG/ML 20 ML IV ONE (14:40)
[2021-06-01] MEDS: NOREPINEPHRINE 8 MG/250ML KIT 250 ML IV SCH (16:54)
[2021-06-01] MEDS ORDERED: PHENYTOIN 100 MG/4 ML SUSP GT SCH (22:00)
[2021-06-02] VITALS (66 sets, daily range): BP systolic 92–143; BP diastolic 59–91
[2021-06-02] MEDS: PHENYLEPHRINE IV 250 ML IV SCH ×3 (03:00→19:40)
[2021-06-02] MEDS: SOD CHL 0.45% WITH 20MEQ KCL 1,000 ML IV SCH ×2 (07:30→21:55)
[2021-06-02] MEDS ORDERED: MIDAZOLAM HCL 5 MG/ML-1ML VIAL ONE (08:44)
[2021-06-02] MEDS ORDERED: diphenhdrAMINE HCL 50 MG/1 ML VL ONE (08:44)
[2021-06-02] MEDS ORDERED: fentaNYL CITRATE 100 MCG/2 ML VL ONE (08:44)
[2021-06-02] MEDS: PANTOPRAZOLE 40 MG/10 ML VIAL INJ IV SCH (10:18)
[2021-06-02] MEDS ORDERED: DEXTROSE (50%) 50ML SYRG IV PRN (17:45)
[2021-06-02] MEDS: ACCU-CHEK COMFORT CURVE STRIP VI SCH ×2 (18:00→23:50)
[2021-06-02] MEDS: InsuLIN REG 1unit/0.01ml Soln (100units/ml) SC SCH ×2 (18:00→23:50)
[2021-06-02] MEDS: NOREPINEPHRINE 8 MG/250ML KIT 250 ML IV SCH (18:45)
[2021-06-03] VITALS (37 sets, daily range): BP systolic 88–127; BP diastolic 54–81
[2021-06-03] MEDS: PHENYLEPHRINE IV 250 ML IV SCH (04:00)
[2021-06-03] MEDS: InsuLIN REG 1unit/0.01ml Soln (100units/ml) SC SCH ×3 (06:00→18:00)
[2021-06-03] MEDS: ACCU-CHEK COMFORT CURVE STRIP VI SCH ×3 (06:01→18:12)
[2021-06-03] MEDS: PANTOPRAZOLE 40 MG/10 ML VIAL INJ IV SCH (10:00)
[2021-06-03] MEDS: ERTAPENEM SOD INJ 1 GM in SODIUM CHL 0.9% 50 ML IV SCH (10:00)
[2021-06-03] MEDS: SOD CHL 0.45% WITH 20MEQ KCL 1,000 ML IV SCH (11:24)
[2021-06-04] VITALS (15 sets, daily range): BP systolic 91–128; BP diastolic 58–83
[2021-06-04] MEDS: ACCU-CHEK COMFORT CURVE STRIP VI SCH ×4 (00:05→23:35)
[2021-06-04] MEDS: SOD CHL 0.45% WITH 20MEQ KCL 1,000 ML IV SCH ×2 (02:55→16:00)
[2021-06-04 05:36] LABS: Albumin 1.4 g/dL (3.4-5.0); Potassium 4.1 mmol/L (3.5-5.1)
[2021-06-04 05:42] LABS: BUN/Creatinine Ratio 13.8; Bilirubin, Total 0.4 mg/dL (0.2-1.0); Total Protein 5.4 g/dL (6.4-8.2)
[2021-06-04] MEDS: InsuLIN REG 1unit/0.01ml Soln (100units/ml) SC SCH ×5 (06:00→23:36)
[2021-06-04] MEDS: PANTOPRAZOLE 40 MG/10 ML VIAL INJ IV SCH (10:00)
[2021-06-04] MEDS: ERTAPENEM SOD INJ 1 GM in SODIUM CHL 0.9% 50 ML IV SCH (10:00)
[2021-06-04] MEDS: ENOXAPARIN SOD 40 MG/0.4 ML SYRINGE SC SCH (11:40)
[2021-06-04] MEDS: PHENYLEPHRINE IV 250 ML IV SCH ×2 (12:20→13:20)
[2021-06-05] VITALS (21 sets, daily range): BP systolic 103–166; BP diastolic 66–86
[2021-06-05] MEDS: ACCU-CHEK COMFORT CURVE STRIP VI SCH ×3 (05:19→17:26)
[2021-06-05] MEDS: InsuLIN REG 1unit/0.01ml Soln (100units/ml) SC SCH ×3 (05:19→17:25)
[2021-06-05 05:30] LABS: Basophils # (auto) 0.2 10 ^3/uL (0-0.2); Eosinophils # (auto) 0.1 10 ^3/uL (0-0.8); Lymphocytes # (auto) 2.2 10 ^3/uL (0.4-5.4); Red Cell Distribution Width 16.2 % (11.8-14.3)
[2021-06-05 05:34] LABS: Basophils % (auto) 1.2 % (0.0-2.0); Eosinophils % (auto) 0.9 % (0.0-7.0); Hematocrit 33.2 % (41.0-53.0); Hemoglobin 11.4 g/dL (13.5-17.5); Lymphocytes % (auto) 14.4 % (10.0-50.0); Mean Corpuscular Hemoglobin 32.3 pg (28.0-32.0); Mean Corpuscular Hgb Conc. 34.3 g/dL (32.0-36.0); Mean Corpuscular Volume 94.3 fL (80.0-100.0); Monocytes # (auto) 1.8 10 ^3/uL (0-1.3); Monocytes % (auto) 12.1 % (0.0-12.0); Neutrophils # (auto) 10.8 10 ^3/uL (1.6-8.6); Neutrophils % (auto) 71.4 % (37.0-80.0); Nucleated Red Blood Cells % 0.1 %; Red Blood Cells 3.51 10^6/uL (4.5-5.90); White Blood Cell 15.1 10^3/uL (4.4-10.8)
[2021-06-05 05:55] LABS: BUN/Creatinine Ratio 10.7; Calcium 8.2 mg/dL (8.5-10.1)
[2021-06-05] MEDS: SOD CHL 0.45% WITH 20MEQ KCL 1,000 ML IV SCH ×2 (09:41→21:00)
[2021-06-05] MEDS: NOREPINEPHRINE 8 MG/250ML KIT 250 ML IV SCH ×3 (09:41→18:45)
[2021-06-05] MEDS: ERTAPENEM SOD INJ 1 GM in SODIUM CHL 0.9% 50 ML IV SCH (09:41)
[2021-06-05] MEDS: PANTOPRAZOLE 40 MG/10 ML VIAL INJ IV SCH (09:42)
[2021-06-05] MEDS: ENOXAPARIN SOD 40 MG/0.4 ML SYRINGE SC SCH (09:42)
[2021-06-05] MEDS: PHENYLEPHRINE IV 250 ML IV SCH ×4 (10:33→17:27)
[2021-06-06] VITALS (12 sets, daily range): BP systolic 98–137; BP diastolic 72–91
[2021-06-06] MEDS: ACCU-CHEK COMFORT CURVE STRIP VI SCH ×4 (00:02→18:05)
[2021-06-06] MEDS: InsuLIN REG 1unit/0.01ml Soln (100units/ml) SC SCH ×4 (05:36→18:05)
[2021-06-06] MEDS: PHENYLEPHRINE IV 250 ML IV SCH ×4 (07:00→19:31)
[2021-06-06] MEDS: PANTOPRAZOLE 40 MG/10 ML VIAL INJ IV SCH (10:07)
[2021-06-06] MEDS: ENOXAPARIN SOD 40 MG/0.4 ML SYRINGE SC SCH (10:07)
[2021-06-06] MEDS: ERTAPENEM SOD INJ 1 GM in SODIUM CHL 0.9% 50 ML IV SCH (10:07)
[2021-06-06] MEDS: SOD CHL 0.45% WITH 20MEQ KCL 1,000 ML IV SCH (10:54)
[2021-06-06] MEDS: NOREPINEPHRINE 8 MG/250ML KIT 250 ML IV SCH (18:05)
[2021-06-07] VITALS (13 sets, daily range): BP systolic 86–129; BP diastolic 55–80
[2021-06-07] MEDS: SOD CHL 0.45% WITH 20MEQ KCL 1,000 ML IV SCH ×3 (01:12→22:36)
[2021-06-07] MEDS: InsuLIN REG 1unit/0.01ml Soln (100units/ml) SC SCH ×4 (06:00→18:00)
[2021-06-07] MEDS: ACCU-CHEK COMFORT CURVE STRIP VI SCH ×4 (06:25→18:00)
[2021-06-07] MEDS: PHENYLEPHRINE IV 250 ML IV SCH ×2 (08:00→16:20)
[2021-06-07] MEDS: PANTOPRAZOLE 40 MG/10 ML VIAL INJ IV SCH (10:05)
[2021-06-07] MEDS: ENOXAPARIN SOD 40 MG/0.4 ML SYRINGE SC SCH (10:06)
[2021-06-07] MEDS ORDERED: SODIUM CHLORIDE 0.9% 1,000 ML IV ONE (10:45)
[2021-06-07] MEDS ORDERED: ALBUMIN 25% 50 ML IV ONE (10:45)
[2021-06-07] MEDS: ERTAPENEM SOD INJ 1 GM in SODIUM CHL 0.9% 50 ML IV SCH (11:56)
[2021-06-08] MEDS: InsuLIN REG 1unit/0.01ml Soln (100units/ml) SC SCH ×5 (06:00→23:50)
[2021-06-08] MEDS: ACCU-CHEK COMFORT CURVE STRIP VI SCH ×5 (06:00→23:51)
[2021-06-08 08:25] LABS: Basophils # (auto) 0.1 10 ^3/uL (0-0.2); Eosinophils # (auto) 0.3 10 ^3/uL (0-0.8); Hemoglobin 11.3 g/dL (13.5-17.5); Monocytes # (auto) 1.1 10 ^3/uL (0-1.3)
[2021-06-08 08:28] LABS: Basophils % (auto) 0.8 % (0.0-2.0); Eosinophils % (auto) 2.9 % (0.0-7.0); Hematocrit 32.9 % (41.0-53.0); Lymphocytes # (auto) 2.2 10 ^3/uL (0.4-5.4); Lymphocytes % (auto) 22.2 % (10.0-50.0); Mean Corpuscular Hemoglobin 32.4 pg (28.0-32.0); Mean Corpuscular Hgb Conc. 34.3 g/dL (32.0-36.0); Mean Corpuscular Volume 94.5 fL (80.0-100.0); Monocytes % (auto) 11.7 % (0.0-12.0); Neutrophils # (auto) 6.1 10 ^3/uL (1.6-8.6); Neutrophils % (auto) 62.4 % (37.0-80.0); Nucleated Red Blood Cells % 0.1 %; Red Blood Cells 3.48 10^6/uL (4.5-5.90); Red Cell Distribution Width 16.1 % (11.8-14.3); White Blood Cell 9.7 10^3/uL (4.4-10.8)
[2021-06-08 08:58] LABS: BUN/Creatinine Ratio 16.7; Calcium 8.3 mg/dL (8.5-10.1)
[2021-06-08] MEDS: PANTOPRAZOLE 40 MG/10 ML VIAL INJ IV SCH (09:56)
[2021-06-08] MEDS: ENOXAPARIN SOD 40 MG/0.4 ML SYRINGE SC SCH (09:56)
[2021-06-08] MEDS: ERTAPENEM SOD INJ 1 GM in SODIUM CHL 0.9% 50 ML IV SCH (10:45)
[2021-06-08] MEDS: SOD CHL 0.45% WITH 20MEQ KCL 1,000 ML IV SCH (20:06)
[2021-06-08 22:00] VITALS: BP 111/67
[2021-06-09 05:20] VITALS: BP 104/63
[2021-06-09] MEDS: InsuLIN REG 1unit/0.01ml Soln (100units/ml) SC SCH ×3 (06:00→18:00)
[2021-06-09] MEDS: ACCU-CHEK COMFORT CURVE STRIP VI SCH ×3 (06:00→18:20)
[2021-06-09 09:00] VITALS: BP 112/68
[2021-06-09] MEDS: PANTOPRAZOLE 40 MG/10 ML VIAL INJ IV SCH (09:59)
[2021-06-09] MEDS: ERTAPENEM SOD INJ 1 GM in SODIUM CHL 0.9% 50 ML IV SCH (09:59)
[2021-06-09] MEDS: ENOXAPARIN SOD 40 MG/0.4 ML SYRINGE SC SCH (10:00)
[2021-06-09] MEDS: SOD CHL 0.45% WITH 20MEQ KCL 1,000 ML IV SCH (10:28)
[2021-06-09 13:00] VITALS: BP 116/66
[2021-06-09 16:53] VITALS: BP 108/66
[2021-06-10] VITALS (19 sets, daily range): BP systolic 77–103; BP diastolic 48–76
[2021-06-10] MEDS: ACCU-CHEK COMFORT CURVE STRIP VI SCH ×4 (02:00→18:00)
[2021-06-10] MEDS: SOD CHL 0.45% WITH 20MEQ KCL 1,000 ML IV SCH ×2 (02:03→15:00)
[2021-06-10] MEDS: InsuLIN REG 1unit/0.01ml Soln (100units/ml) SC SCH ×4 (06:00→18:00)
[2021-06-10] MEDS ORDERED: fentaNYL Drip 2500mCg/250mlNS 250 ML IV ONE (07:44)
[2021-06-10] MEDS ORDERED: PROPOFOL 0 ML IV ONE (07:44)
[2021-06-10] MEDS ORDERED: NOREPINEPHRINE 8 MG/250ML KIT 250 ML IV ONE (07:44)
[2021-06-10] MEDS: fentaNYL Drip 2500mCg/250mlNS 250 ML IV SCH (08:00)
[2021-06-10] MEDS: NOREPINEPHRINE 8 MG/250ML KIT 250 ML IV SCH (09:46)
[2021-06-10 09:56] LABS: Hematocrit 36.1 % (41.0-53.0); Mean Corpuscular Hemoglobin 31.7 pg (28.0-32.0); Mean Corpuscular Hgb Conc. 33.2 g/dL (32.0-36.0); Mean Corpuscular Volume 95.5 fL (80.0-100.0); Red Blood Cells 3.77 10^6/uL (4.5-5.90); Red Cell Distribution Width 15.5 % (11.8-14.3)
[2021-06-10] MEDS: ENOXAPARIN SOD 40 MG/0.4 ML SYRINGE SC SCH (10:00)
[2021-06-10] MEDS: ERTAPENEM SOD INJ 1 GM in SODIUM CHL 0.9% 50 ML IV SCH (10:00)
[2021-06-10] MEDS: PANTOPRAZOLE 40 MG/10 ML VIAL INJ IV SCH (10:00)
[2021-06-10 10:18] LABS: Potassium 3.9 mmol/L (3.5-5.1)
[2021-06-10 10:24] LABS: Albumin 1.4 g/dL (3.4-5.0); BUN/Creatinine Ratio 11.3; Bilirubin, Total 0.4 mg/dL (0.2-1.0); Calcium 8.1 mg/dL (8.5-10.1); Magnesium 1.8 mg/dL (1.6-2.6); Total Protein 5.9 g/dL (6.4-8.2)
[2021-06-10 10:26] LABS: White Blood Cell 31.2 10^3/uL (4.4-10.8)
[2021-06-10 10:27] LABS: Basophils % (manual) 0 (0.0-2.0); Blast Cells 0; Eosinophils % (manual) 0 (0-7); Promyelocytes % 0; Reactive Lymphocytes 0
[2021-06-10 11:24] LABS: INR 1.08 (0.9-1.15); Partial Thromboplastin Time 30.9 sec (23.6-33.0)
[2021-06-10 14:11] LABS: Band Neutrophils % (manual) 13; Lymphocytes % (manual) 4 (10.0-50.0); Metamyelocytes % 1; Monocytes % (manual) 5 (0-12); Myelocytes % 1
[2021-06-11] VITALS (31 sets, daily range): BP systolic 82–138; BP diastolic 54–83
[2021-06-11 04:48] LABS: Basophils # (auto) 0.1 10 ^3/uL (0-0.2); Basophils % (auto) 0.5 % (0.0-2.0); Eosinophils # (auto) 0.1 10 ^3/uL (0-0.8); Eosinophils % (auto) 0.4 % (0.0-7.0); Hematocrit 34.7 % (41.0-53.0); Hemoglobin 11.5 g/dL (13.5-17.5); Lymphocytes # (auto) 3.1 10 ^3/uL (0.4-5.4); Lymphocytes % (auto) 17.2 % (10.0-50.0); Mean Corpuscular Hemoglobin 31.5 pg (28.0-32.0); Mean Corpuscular Hgb Conc. 33.2 g/dL (32.0-36.0); Mean Corpuscular Volume 94.8 fL (80.0-100.0); Monocytes # (auto) 1.4 10 ^3/uL (0-1.3); Monocytes % (auto) 7.9 % (0.0-12.0); Neutrophils # (auto) 13.4 10 ^3/uL (1.6-8.6); Nucleated Red Blood Cells % 0.1 %; Red Blood Cells 3.66 10^6/uL (4.5-5.90); Red Cell Distribution Width 15.6 % (11.8-14.3); White Blood Cell 18.1 10^3/uL (4.4-10.8)
[2021-06-11 05:14] LABS: Potassium 4.5 mmol/L (3.5-5.1)
[2021-06-11] MEDS: SOD CHL 0.45% WITH 20MEQ KCL 1,000 ML IV SCH ×2 (05:18→19:36)
[2021-06-11 05:33] LABS: Albumin 1.3 g/dL (3.4-5.0); BUN/Creatinine Ratio 13.8; Bilirubin, Total 0.4 mg/dL (0.2-1.0); Calcium 7.9 mg/dL (8.5-10.1); Total Protein 5.9 g/dL (6.4-8.2)
[2021-06-11] MEDS: InsuLIN REG 1unit/0.01ml Soln (100units/ml) SC SCH ×4 (05:49→18:00)
[2021-06-11] MEDS: ACCU-CHEK COMFORT CURVE STRIP VI SCH ×4 (05:49→18:00)
[2021-06-11] MEDS: fentaNYL Drip 2500mCg/250mlNS 250 ML IV SCH (08:30)
[2021-06-11] MEDS: NOREPINEPHRINE 8 MG/250ML KIT 250 ML IV SCH ×2 (08:30→20:37)
[2021-06-11] MEDS: ENOXAPARIN SOD 40 MG/0.4 ML SYRINGE SC SCH (10:00)
[2021-06-11] MEDS: ERTAPENEM SOD INJ 1 GM in SODIUM CHL 0.9% 50 ML IV SCH (10:00)
[2021-06-11] MEDS: PANTOPRAZOLE 40 MG/10 ML VIAL INJ IV SCH (10:00)
[2021-06-12] VITALS (36 sets, daily range): BP systolic 92–129; BP diastolic 58–80
[2021-06-12] MEDS: ACCU-CHEK COMFORT CURVE STRIP VI SCH ×4 (06:00→18:05)
[2021-06-12] MEDS: fentaNYL Drip 2500mCg/250mlNS 250 ML IV SCH (08:30)
[2021-06-12] MEDS: InsuLIN REG 1unit/0.01ml Soln (100units/ml) SC SCH ×4 (08:50→18:00)
[2021-06-12] MEDS: PANTOPRAZOLE 40 MG/10 ML VIAL INJ IV SCH (09:50)
[2021-06-12] MEDS: SOD CHL 0.45% WITH 20MEQ KCL 1,000 ML IV SCH ×2 (09:54→16:09)
[2021-06-12] MEDS: ENOXAPARIN SOD 40 MG/0.4 ML SYRINGE SC SCH (10:32)
[2021-06-12] MEDS: ERTAPENEM SOD INJ 1 GM in SODIUM CHL 0.9% 50 ML IV SCH (15:58)
[2021-06-13] VITALS (26 sets, daily range): BP systolic 91–122; BP diastolic 52–76
[2021-06-13 03:49] LABS: Basophils # (auto) 0.1 10 ^3/uL (0-0.2); Basophils % (auto) 0.8 % (0.0-2.0); Eosinophils # (auto) 0.7 10 ^3/uL (0-0.8); Eosinophils % (auto) 4.9 % (0.0-7.0); Hematocrit 28.4 % (41.0-53.0); Hemoglobin 9.1 g/dL (13.5-17.5); Lymphocytes # (auto) 3.1 10 ^3/uL (0.4-5.4); Mean Corpuscular Hgb Conc. 32.1 g/dL (32.0-36.0); Mean Corpuscular Volume 96.4 fL (80.0-100.0); Monocytes # (auto) 1.7 10 ^3/uL (0-1.3); Monocytes % (auto) 11.6 % (0.0-12.0); Neutrophils % (auto) 61.7 % (37.0-80.0); Nucleated Red Blood Cells % 0.2 %; Red Blood Cells 2.95 10^6/uL (4.5-5.90); Red Cell Distribution Width 15.9 % (11.8-14.3); White Blood Cell 14.6 10^3/uL (4.4-10.8)
[2021-06-13 04:14] LABS: Albumin 1.3 g/dL (3.4-5.0); Calcium 7.6 mg/dL (8.5-10.1); Potassium 4.1 mmol/L (3.5-5.1)
[2021-06-13 04:19] LABS: BUN/Creatinine Ratio 19.6; Bilirubin, Total 0.5 mg/dL (0.2-1.0); Magnesium 2.6 mg/dL (1.6-2.6); Total Protein 5.2 g/dL (6.4-8.2)
[2021-06-13] MEDS: ACCU-CHEK COMFORT CURVE STRIP VI SCH ×4 (06:00→18:00)
[2021-06-13] MEDS: InsuLIN REG 1unit/0.01ml Soln (100units/ml) SC SCH ×4 (06:00→18:00)
[2021-06-13] MEDS: fentaNYL Drip 2500mCg/250mlNS 250 ML IV SCH (08:30)
[2021-06-13] MEDS: NOREPINEPHRINE 8 MG/250ML KIT 250 ML IV SCH (08:30)
[2021-06-13] MEDS: ERTAPENEM SOD INJ 1 GM in SODIUM CHL 0.9% 50 ML IV SCH (10:22)
[2021-06-13] MEDS: PANTOPRAZOLE 40 MG/10 ML VIAL INJ IV SCH (10:23)
[2021-06-13] MEDS: ENOXAPARIN SOD 40 MG/0.4 ML SYRINGE SC SCH (10:24)
[2021-06-14] VITALS (30 sets, daily range): BP systolic 96–132; BP diastolic 55–79
[2021-06-14] MEDS: SOD CHL 0.45% WITH 20MEQ KCL 1,000 ML IV SCH ×4 (00:41→17:00)
[2021-06-14] MEDS: InsuLIN REG 1unit/0.01ml Soln (100units/ml) SC SCH ×3 (05:37→12:00)
[2021-06-14] MEDS: ACCU-CHEK COMFORT CURVE STRIP VI SCH ×3 (05:38→12:00)
[2021-06-14] MEDS: fentaNYL Drip 2500mCg/250mlNS 250 ML IV SCH (08:22)
[2021-06-14] MEDS: NOREPINEPHRINE 8 MG/250ML KIT 250 ML IV SCH (08:22)
[2021-06-14] MEDS: PANTOPRAZOLE 40 MG/10 ML VIAL INJ IV SCH (10:04)
[2021-06-14] MEDS: ENOXAPARIN SOD 40 MG/0.4 ML SYRINGE SC SCH (10:04)
[2021-06-14] MEDS: Jevity 1.2 Cal/Fiber 1 Liter GT SCH (19:00)
[2021-06-14] MEDS: PHENYTOIN 100 MG/4 ML SUSP GT SCH (22:00)
[2021-06-15] VITALS (24 sets, daily range): BP systolic 98–136; BP diastolic 55–91
[2021-06-15 03:26] LABS: Basophils # (auto) 0.1 10 ^3/uL (0-0.2); Basophils % (auto) 0.6 % (0.0-2.0); Eosinophils # (auto) 0.3 10 ^3/uL (0-0.8); Eosinophils % (auto) 2.2 % (0.0-7.0); Hematocrit 26.9 % (41.0-53.0); Hemoglobin 8.9 g/dL (13.5-17.5); Lymphocytes # (auto) 1.8 10 ^3/uL (0.4-5.4); Lymphocytes % (auto) 11.4 % (10.0-50.0); Mean Corpuscular Hemoglobin 31.9 pg (28.0-32.0); Mean Corpuscular Hgb Conc. 33.2 g/dL (32.0-36.0); Monocytes # (auto) 2.2 10 ^3/uL (0-1.3); Monocytes % (auto) 13.9 % (0.0-12.0); Neutrophils # (auto) 11.1 10 ^3/uL (1.6-8.6); Neutrophils % (auto) 71.9 % (37.0-80.0); Nucleated Red Blood Cells % 0.1 %; Red Cell Distribution Width 15.9 % (11.8-14.3); White Blood Cell 15.5 10^3/uL (4.4-10.8)
[2021-06-15 03:43] LABS: Potassium 3.9 mmol/L (3.5-5.1)
[2021-06-15 03:44] LABS: Albumin 1.1 g/dL (3.4-5.0); Calcium 7.8 mg/dL (8.5-10.1)
[2021-06-15 03:46] LABS: Bilirubin, Total 0.4 mg/dL (0.2-1.0)
[2021-06-15] MEDS: InsuLIN REG 1unit/0.01ml Soln (100units/ml) SC SCH ×4 (06:00→18:00)
[2021-06-15] MEDS: SOD CHL 0.45% WITH 20MEQ KCL 1,000 ML IV SCH (06:00)
[2021-06-15] MEDS: ACCU-CHEK COMFORT CURVE STRIP VI SCH ×4 (06:02→18:00)
[2021-06-15] MEDS: fentaNYL Drip 2500mCg/250mlNS 250 ML IV SCH (08:30)
[2021-06-15] MEDS: NOREPINEPHRINE 8 MG/250ML KIT 250 ML IV SCH (08:30)
[2021-06-15] MEDS: PANTOPRAZOLE 40 MG/10 ML VIAL INJ IV SCH (10:31)
[2021-06-15] MEDS: PHENYTOIN 100 MG/4 ML SUSP GT SCH ×2 (10:32→22:00)
[2021-06-15] MEDS: ENOXAPARIN SOD 40 MG/0.4 ML SYRINGE SC SCH (10:38)
[2021-06-15] MEDS: Jevity 1.2 Cal/Fiber 1 Liter GT SCH (22:00)
[2021-06-16] VITALS (23 sets, daily range): BP systolic 94–126; BP diastolic 56–81
[2021-06-16] MEDS: ACCU-CHEK COMFORT CURVE STRIP VI SCH ×4 (06:00→17:59)
[2021-06-16] MEDS: InsuLIN REG 1unit/0.01ml Soln (100units/ml) SC SCH ×4 (06:00→17:59)
[2021-06-16] MEDS ORDERED: PHENYTOIN IV DILANTIN 500 MG in SODIUM CHL 0.9% 100 ML IV ONE (09:15)
[2021-06-16] MEDS: PHENYTOIN 100 MG/4 ML SUSP GT SCH ×2 (09:39→22:03)
[2021-06-16] MEDS: PANTOPRAZOLE 40 MG/10 ML VIAL INJ IV SCH (09:40)
[2021-06-16 12:27] LABS: Hepatitis B Core IgM Negative; Hepatitis C Antibody Reactive (Negative)
[2021-06-16 12:32] LABS: Basophils # (auto) 0.1 10 ^3/uL (0-0.2); Eosinophils # (auto) 0.2 10 ^3/uL (0-0.8); Eosinophils % (auto) 1.2 % (0.0-7.0); Hematocrit 27.1 % (41.0-53.0); Hemoglobin 8.9 g/dL (13.5-17.5); Lymphocytes # (auto) 2.5 10 ^3/uL (0.4-5.4); Mean Corpuscular Hemoglobin 31.6 pg (28.0-32.0); Mean Corpuscular Hgb Conc. 32.9 g/dL (32.0-36.0); Monocytes # (auto) 1.5 10 ^3/uL (0-1.3); Monocytes % (auto) 11.9 % (0.0-12.0); Neutrophils # (auto) 8.6 10 ^3/uL (1.6-8.6); Neutrophils % (auto) 66.9 % (37.0-80.0); Red Blood Cells 2.82 10^6/uL (4.5-5.90); Red Cell Distribution Width 16.2 % (11.8-14.3); White Blood Cell 12.9 10^3/uL (4.4-10.8)
[2021-06-16] MEDS: SOD CHL 0.45% WITH 20MEQ KCL 1,000 ML IV SCH (20:30)
[2021-06-17] VITALS (24 sets, daily range): BP systolic 100–147; BP diastolic 7–94
[2021-06-17 04:43] LABS: Eosinophils # (auto) 0.2 10 ^3/uL (0-0.8); Hemoglobin 8.8 g/dL (13.5-17.5); Monocytes # (auto) 1.8 10 ^3/uL (0-1.3)
[2021-06-17 04:45] LABS: Basophils # (auto) 0.2 10 ^3/uL (0-0.2); Eosinophils % (auto) 1.5 % (0.0-7.0); Hematocrit 26.6 % (41.0-53.0); Lymphocytes # (auto) 3.3 10 ^3/uL (0.4-5.4); Mean Corpuscular Hemoglobin 31.9 pg (28.0-32.0); Mean Corpuscular Hgb Conc. 33.2 g/dL (32.0-36.0); Mean Corpuscular Volume 96.2 fL (80.0-100.0); Monocytes % (auto) 12.1 % (0.0-12.0); Neutrophils # (auto) 9.5 10 ^3/uL (1.6-8.6); Neutrophils % (auto) 63.4 % (37.0-80.0); Red Blood Cells 2.76 10^6/uL (4.5-5.90); Red Cell Distribution Width 16.4 % (11.8-14.3)
[2021-06-17 05:28] LABS: Calcium 8.1 mg/dL (8.5-10.1); Potassium 4.1 mmol/L (3.5-5.1)
[2021-06-17 05:39] LABS: BUN/Creatinine Ratio 17.1
[2021-06-17] MEDS: InsuLIN REG 1unit/0.01ml Soln (100units/ml) SC SCH ×4 (06:00→18:00)
[2021-06-17] MEDS: ACCU-CHEK COMFORT CURVE STRIP VI SCH ×4 (06:00→18:10)
[2021-06-17] MEDS: SOD CHL 0.45% WITH 20MEQ KCL 1,000 ML IV SCH ×2 (09:37→19:00)
[2021-06-17] MEDS: PHENYTOIN 100 MG/4 ML SUSP GT SCH ×2 (09:37→22:00)
[2021-06-17] MEDS: PANTOPRAZOLE 40 MG/10 ML VIAL INJ IV SCH (09:37)
[2021-06-17] MEDS: ENOXAPARIN SOD 80 MG/0.8ML SYRINGE SC SCH (22:00)
[2021-06-18] VITALS (23 sets, daily range): BP systolic 90–133; BP diastolic 55–83
[2021-06-18] MEDS: SOD CHL 0.45% WITH 20MEQ KCL 1,000 ML IV SCH ×2 (00:15→23:12)
[2021-06-18 04:00] LABS: Basophils # (auto) 0.2 10 ^3/uL (0-0.2); Basophils % (auto) 1.3 % (0.0-2.0); Eosinophils # (auto) 0.3 10 ^3/uL (0-0.8); Lymphocytes # (auto) 2.4 10 ^3/uL (0.4-5.4); Red Blood Cells 2.86 10^6/uL (4.5-5.90); White Blood Cell 14.8 10^3/uL (4.4-10.8)
[2021-06-18 04:02] LABS: Eosinophils % (auto) 1.9 % (0.0-7.0); Hematocrit 27.3 % (41.0-53.0); Lymphocytes % (auto) 16.4 % (10.0-50.0); Mean Corpuscular Hemoglobin 31.5 pg (28.0-32.0); Mean Corpuscular Hgb Conc. 33.1 g/dL (32.0-36.0); Mean Corpuscular Volume 95.4 fL (80.0-100.0); Monocytes # (auto) 1.3 10 ^3/uL (0-1.3); Monocytes % (auto) 8.6 % (0.0-12.0); Neutrophils # (auto) 10.6 10 ^3/uL (1.6-8.6); Neutrophils % (auto) 71.8 % (37.0-80.0); Nucleated Red Blood Cells % 0.1 %; Red Cell Distribution Width 15.9 % (11.8-14.3)
[2021-06-18 04:16] LABS: BUN/Creatinine Ratio 16.1; Calcium 8.2 mg/dL (8.5-10.1)
[2021-06-18] MEDS: InsuLIN REG 1unit/0.01ml Soln (100units/ml) SC SCH ×3 (06:00→12:00)
[2021-06-18] MEDS: ACCU-CHEK COMFORT CURVE STRIP VI SCH ×3 (06:00→12:00)
[2021-06-18] MEDS: PANTOPRAZOLE 40 MG/10 ML VIAL INJ IV SCH (10:52)
[2021-06-18] MEDS: PHENYTOIN 100 MG/4 ML SUSP GT SCH ×2 (10:52→22:20)
[2021-06-18] MEDS: ENOXAPARIN SOD 80 MG/0.8ML SYRINGE SC SCH ×2 (10:53→22:20)
[2021-06-19] VITALS (20 sets, daily range): BP systolic 104–137; BP diastolic 64–85
[2021-06-19] MEDS: ACCU-CHEK COMFORT CURVE STRIP VI SCH ×4 (00:28→17:37)
[2021-06-19 05:55] LABS: Eosinophils # (auto) 0.4 10 ^3/uL (0-0.8); Hemoglobin 9.6 g/dL (13.5-17.5); Red Cell Distribution Width 15.7 % (11.8-14.3)
[2021-06-19 05:59] LABS: Basophils # (auto) 0 10 ^3/uL (0-0.2); Basophils % (auto) 0.3 % (0.0-2.0); Hematocrit 28.5 % (41.0-53.0); Lymphocytes # (auto) 3.3 10 ^3/uL (0.4-5.4); Lymphocytes % (auto) 24.2 % (10.0-50.0); Mean Corpuscular Hemoglobin 32.5 pg (28.0-32.0); Mean Corpuscular Hgb Conc. 33.8 g/dL (32.0-36.0); Mean Corpuscular Volume 96.1 fL (80.0-100.0); Monocytes # (auto) 1.4 10 ^3/uL (0-1.3); Monocytes % (auto) 10.5 % (0.0-12.0); Neutrophils # (auto) 8.5 10 ^3/uL (1.6-8.6); Nucleated Red Blood Cells % 0.1 %; Red Blood Cells 2.97 10^6/uL (4.5-5.90); White Blood Cell 13.7 10^3/uL (4.4-10.8)
[2021-06-19] MEDS: InsuLIN REG 1unit/0.01ml Soln (100units/ml) SC SCH ×4 (06:00→17:37)
[2021-06-19 06:20] LABS: Potassium 3.9 mmol/L (3.5-5.1)
[2021-06-19 06:27] LABS: BUN/Creatinine Ratio 14.3; Calcium 8.2 mg/dL (8.5-10.1)
[2021-06-19] MEDS: PHENYTOIN 100 MG/4 ML SUSP GT SCH ×2 (10:00→22:00)
[2021-06-19] MEDS: ENOXAPARIN SOD 80 MG/0.8ML SYRINGE SC SCH ×2 (10:00→22:00)
[2021-06-19] MEDS: PANTOPRAZOLE 40 MG/10 ML VIAL INJ IV SCH (10:00)
[2021-06-19] MEDS: SOD CHL 0.45% WITH 20MEQ KCL 1,000 ML IV SCH (13:52)
[2021-06-20] MEDS: SOD CHL 0.45% WITH 20MEQ KCL 1,000 ML IV SCH ×2 (00:43→18:29)
[2021-06-20] MEDS: InsuLIN REG 1unit/0.01ml Soln (100units/ml) SC SCH ×4 (06:00→18:00)
[2021-06-20] MEDS: ACCU-CHEK COMFORT CURVE STRIP VI SCH ×4 (06:00→18:28)
[2021-06-20 06:39] LABS: Basophils # (auto) 0.1 10 ^3/uL (0-0.2); Basophils % (auto) 0.6 % (0.0-2.0); Eosinophils # (auto) 0.4 10 ^3/uL (0-0.8); Eosinophils % (auto) 3.1 % (0.0-7.0); Hematocrit 28.1 % (41.0-53.0); Hemoglobin 9.2 g/dL (13.5-17.5); Lymphocytes # (auto) 2.3 10 ^3/uL (0.4-5.4); Mean Corpuscular Hemoglobin 31.5 pg (28.0-32.0); Mean Corpuscular Hgb Conc. 32.9 g/dL (32.0-36.0); Mean Corpuscular Volume 95.6 fL (80.0-100.0); Monocytes # (auto) 1.2 10 ^3/uL (0-1.3); Monocytes % (auto) 8.7 % (0.0-12.0); Neutrophils # (auto) 9.4 10 ^3/uL (1.6-8.6); Neutrophils % (auto) 70.6 % (37.0-80.0); Nucleated Red Blood Cells % 0.1 %; Red Blood Cells 2.93 10^6/uL (4.5-5.90); Red Cell Distribution Width 16.1 % (11.8-14.3); White Blood Cell 13.4 10^3/uL (4.4-10.8)
[2021-06-20 06:54] LABS: Albumin 1.4 g/dL (3.4-5.0); Calcium 8.3 mg/dL (8.5-10.1)
[2021-06-20 06:56] LABS: % Iron Saturation 22.1 % (20-55)
[2021-06-20 07:04] LABS: BUN/Creatinine Ratio 17.2; Bilirubin, Total 0.4 mg/dL (0.2-1.0); CRP High Sensitivity 7.9 mg/dL (< 0.3); Pre Albumin 6.5 mg/dL (20.0-40.0); Total Protein 5.7 g/dL (6.4-8.2)
[2021-06-20 07:12] LABS: Thyroid Stimulating Hormone 3.15 uIU/mL (0.358-3.74)
[2021-06-20 09:53] LABS: Ferritin 306.2 ng/mL (10-322); Folate (Folic Acid) 3.02 ng/mL (5.38-24)
[2021-06-20] MEDS: PHENYTOIN 100 MG/4 ML SUSP GT SCH ×2 (10:00→23:33)
[2021-06-20] MEDS: PANTOPRAZOLE 40 MG/10 ML VIAL INJ IV SCH (10:00)
[2021-06-20] MEDS: ENOXAPARIN SOD 80 MG/0.8ML SYRINGE SC SCH ×2 (10:00→23:35)
[2021-06-20] MEDS ORDERED: HYDROcodone-ACET 5/325MG TAB PO PRN (10:15)
[2021-06-20 19:00] VITALS: BP 112/71
[2021-06-20 20:00] VITALS: BP 114/81
[2021-06-20 21:00] VITALS: BP 108/72
[2021-06-20 22:00] VITALS: BP 123/82
[2021-06-20 23:00] VITALS: BP 113/71
[2021-06-21] VITALS (12 sets, daily range): BP systolic 82–112; BP diastolic 0–78
[2021-06-21] MEDS: ACCU-CHEK COMFORT CURVE STRIP VI SCH ×3 (00:37→11:29)
[2021-06-21] MEDS: InsuLIN REG 1unit/0.01ml Soln (100units/ml) SC SCH ×3 (01:00→11:29)
[2021-06-21] MEDS: SOD CHL 0.45% WITH 20MEQ KCL 1,000 ML IV SCH (06:38)
[2021-06-21] MEDS ORDERED: NOREPINEPHRINE 8 MG/250ML KIT 250 ML IV ONE (10:32)
[2021-06-21] MEDS ORDERED: PHENYLEPHRINE IV 250 ML IV SCH (10:45)
[2021-06-21] MEDS ORDERED: NOREPINEPHRINE 8 MG/250ML KIT 250 ML IV SCH (10:45)
[2021-06-21] MEDS ORDERED: MIDAZOLAM DRIP 50 mg/50mL 50 ML IV SCH (10:45)
[2021-06-21] MEDS: PANTOPRAZOLE 40 MG/10 ML VIAL INJ IV SCH (11:15)
[2021-06-21] MEDS: PHENYTOIN 100 MG/4 ML SUSP GT SCH (11:15)
[2021-06-21] MEDS: ENOXAPARIN SOD 80 MG/0.8ML SYRINGE SC SCH (11:15)
[2021-06-21] MEDS ORDERED: SODIUM FERR GLUC 62.5MG/5ML 125 MG in SODIUM CHL 0.9% 100 ML IV ONE (13:15)
[2021-06-21] MEDS ORDERED: FOLIC ACID 1 MG in D5W 5% 50 ML INJ SCH (13:15)
[2021-06-21] MEDS ORDERED: VASOPRESSIN 20 UNIT/ML ONE (13:55)
[2021-06-21] MEDS ORDERED: VASOPRESSIN 50 UNITS in D5W 5% 247.5 ML IV SCH (14:00)
[2021-06-21] MEDS ORDERED: FERROUS SULFATE 300 MG/5 ML ORAL LIQ GT SCH (14:00)
[2021-06-21] MEDS ORDERED: MORPHINE SULFATE INJECTION 2 MG/ML SYRG IV PRN (14:45)
[2021-06-21] MEDS ORDERED: LORazepam 2MG/ML-1ML VIAL IV PRN (14:45)
== END 2021-06-22 02:32 | DRG 5 ==
LOC: ER 15:48 → EDBD 15:48 → TELE 05-16 01:39 → CATH ICU 05-18 23:16 → TELE-CENTR 06-07 17:56 → CATH ICU 06-10 08:00
PROVIDERS: ADMIT Hospitalist; ATTEND Internal Medicine
PROC: 5A1955Z Respiratory Ventilation, Greater than 96 Consecutive Hours (ICD-10-PCS; 2021-05-15)
PROC: 0BH17EZ Insertion of Endotracheal Airway into Trachea, Via Natural or Artificial Opening (ICD-10-PCS; 2021-05-15)
PROC: 009U3ZX Drainage of Spinal Canal, Percutaneous Approach, Diagnostic (ICD-10-PCS; principal; 2021-05-18)
PROC: 0B9F8ZZ Drainage of Right Lower Lung Lobe, Via Natural or Artificial Opening Endoscopic (ICD-10-PCS; 2021-05-19)
PROC: 0B938ZZ Drainage of Right Main Bronchus, Via Natural or Artificial Opening Endoscopic (ICD-10-PCS; 2021-05-19)
PROC: 0B110F4 Bypass Trachea to Cutaneous with Tracheostomy Device, Open Approach (ICD-10-PCS; 2021-06-01)
PROC: 0BH17EZ Insertion of Endotracheal Airway into Trachea, Via Natural or Artificial Opening (ICD-10-PCS; 2021-06-10)
PROC: 0B918ZZ Drainage of Trachea, Via Natural or Artificial Opening Endoscopic (ICD-10-PCS; 2021-06-10)
PROC: 5A12012 Performance of Cardiac Output, Single, Manual (ICD-10-PCS; 2021-06-10)
PROC: 5A1935Z Respiratory Ventilation, Less than 24 Consecutive Hours (ICD-10-PCS; 2021-06-21)
PROC: 0BH17EZ Insertion of Endotracheal Airway into Trachea, Via Natural or Artificial Opening (ICD-10-PCS; 2021-06-21)
DX: A41.9 Sepsis, unspecified organism (principal); N17.0 Acute kidney failure with tubular necrosis; R65.21 Severe sepsis with septic shock; J69.0 Pneumonitis due to inhalation of food and vomit; G92.8 Other toxic encephalopathy; E44.0 Moderate protein-calorie malnutrition; S06.9X9A Unspecified intracranial injury with loss of consciousness of unspecified duration, initial encounter; E87.1 Hypo-osmolality and hyponatremia; I46.9 Cardiac arrest, cause unspecified; I82.412 Acute embolism and thrombosis of left femoral vein; J96.01 Acute respiratory failure with hypoxia; E87.0 Hyperosmolality and hypernatremia; G40.909 Epilepsy, unspecified, not intractable, without status epilepticus; J98.11 Atelectasis; Z66 Do not resuscitate; N20.0 Calculus of kidney; N39.0 Urinary tract infection, site not specified; B96.20 Unspecified Escherichia coli [E. coli] as the cause of diseases classified elsewhere; Z16.12 Extended spectrum beta lactamase (ESBL) resistance; E88.09 Other disorders of plasma-protein metabolism, not elsewhere classified; N18.30 Chronic kidney disease, stage 3 unspecified; I12.9 Hypertensive chronic kidney disease with stage 1 through stage 4 chronic kidney disease, or unspecified chronic kidney disease; D64.9 Anemia, unspecified; D75.839 Thrombocytosis, unspecified; Z20.822 Contact with and (suspected) exposure to COVID-19; E86.0 Dehydration; F09 Unspecified mental disorder due to known physiological condition; F17.200 Nicotine dependence, unspecified, uncomplicated; M19.90 Unspecified osteoarthritis, unspecified site; R00.1 Bradycardia, unspecified; R73.9 Hyperglycemia, unspecified; Z68.24 Body mass index [BMI] 24.0-24.9, adult; Z93.1 Gastrostomy status; Y92.410 Unspecified street and highway as the place of occurrence of the external cause; Z91.040 Latex allergy status; Z86.73 Personal history of transient ischemic attack (TIA), and cerebral infarction without residual deficits
CPT/HCPCS: 31645; 31720; 36415; 36556; 36600; 70450; 71045; 71250; 74176; 76705; 76775; 76937; 80048; 80053; 80074; 80185; 80202; 81001; 82040; 82270; 82306; 82550; 82607; 82728; 82746; 82805; 82945; 82962; 83010; 83036; 83540; 83550; 83605; 83615; 83735; 83880; 83970; 84100; 84132; 84157; 84443; 84484; 85007; 85025; 85027; 85379; 85610; 85652; 85730; 86141; 86880; 87040; 87070; 87077; 87081; 87086; 87088; 87186; 87205; 87426; 87529; 89051; 93005; 93306; 93970; 94002; 94003; 94640; 95819; 96365; 96367; 99291; C9113; G0378; J0330; J1100; J1335; J2185; J2250; J2543; J2704; J7060